=== PATIENT | male | born 1945 | race Caucasian/White ===

== ENCOUNTER 2017-10-10 05:57 | Day surgery (SDC) | payer OTHER ==
[~2017-10-10] VITALS: Ht 182.9 cm; Wt 105.0 kg
[2017-10-10] VITALS (11 sets, daily range): BP systolic 133–180; BP diastolic 62–82; PULSE 62–81; RESP 18–22; TEMP 97.5–98.6; O2SAT 95–97
[~2017-10-10 05:57] MED LIST: ALBU.5I NEB; ASPI-516 CHEW; ATOR40TA16 PO; COQ-100C2; D31000CA3 PO; IPRAAER INH; METO25TA3 PO; RANI150C PO; SERT-132 PO; UMEC1AER INH
[2017-10-10] MEDS ORDERED: POVIDONE IODINE 5% (ANTISEPSIS KIT) 4 APPLICATIONS EACH NARE PRN (06:30)
[2017-10-10] MEDS ORDERED: ceFAZolin 2 GM PREMIX 50 ML IV SCH (06:30)
[2017-10-10] MEDS ORDERED: CHLORHEXIDINE GLUCONATE 2 % 1 PACK (2 CLOTHS) TOPICAL PRN (06:30)
[2017-10-10] MEDS ORDERED: MUPIROCIN 2% OINT 1 APPLIC/GM SYR NASAL SCH (06:30)
[2017-10-10] MEDS ORDERED: SODIUM CHLORID 0.9% 500 ML IV PRN (06:30)
[2017-10-10] MEDS ORDERED: METOPROLOL TARTRATE 25 MG TAB PO PRN (06:30)
[2017-10-10] MEDS ORDERED: POVIDONE IODINE 5% (ANTISEPSIS KIT) 4 APPLICATIONS EACH NARE SCH (06:30)
[2017-10-10] MEDS ORDERED: CHLORHEXIDINE GLUCONATE 2 % 1 PACK (2 CLOTHS) TOPICAL SCH (06:30)
[2017-10-10] MEDS ORDERED: LACTATED RINGER'S 1000 ML IV PRN (06:30)
[2017-10-10] MEDS ORDERED: SITA25 PO (07:00)
[2017-10-10] MEDS ORDERED: VANCOMYCIN 1000 MG/NS 250 ML ON-CALL IV SCH ×2 (07:00)
[2017-10-10] MEDS ORDERED: COQ-50CA2 (07:00)
[2017-10-10] MEDS ORDERED: GLIP10TA6 PO (07:00)
[2017-10-10] MEDS ORDERED: MIDAZOLAM HCL 2 MG/2 ML VIAL ONE (07:14)
[2017-10-10 07:16] LABS: BASOPHIL # 0.1 TH/MM3 (0-0.2); BASOPHIL % 0.6 % (0.0-2.0); EOSINOPHIL # 0.4 TH/MM3 (0-0.4); EOSINOPHIL % 4.9 % (0.0-4.0); HEMATOCRIT 41.1 % (39.0-51.0); LYMPH % 18.9 % (9.0-44.0); LYMPHOCYTE # 1.7 TH/MM3 (1.0-4.8); MEAN CELL VOLUME 86.8 FL (80.0-100.0); MEAN CORPUSCULAR HEMOGLOBIN 29.5 PG (27.0-34.0); MEAN CORPUSCULAR HGB CONC 33.9 % (32.0-36.0); MEAN PLATELET VOLUME 8.6 FL (7.0-11.0); MONO % 7.6 % (0.0-8.0); MONOCYTE # 0.7 TH/MM3 (0-0.9); PLATELET COUNT 195 TH/MM3 (150-450); RED BLOOD COUNT 4.74 MIL/MM3 (4.50-5.90); RED CELL DISTRIBUTION WIDTH 13.3 % (11.6-17.2); WHITE BLOOD COUNT 8.9 TH/MM3 (4.0-11.0)
[2017-10-10] MEDS ORDERED: LIDOCAINE HCL 2% 50 ML VIAL ONE (07:16)
[2017-10-10] MEDS ORDERED: VANCOMYCIN 500 MG VIAL ONE (07:17)
[2017-10-10] MEDS ORDERED: HEPARIN-NS/PF FLUSH BAG 1,000 ML IV FLUSH ONE (07:18)
[2017-10-10 07:34] LABS: BICARBONATE 29.5 MEQ/L (21.0-32.0); CALCIUM 8.7 MG/DL (8.5-10.1); CREATININE 2.04 MG/DL (0.60-1.30)
[2017-10-10] MEDS ORDERED: GENTAMICIN SULFATE 80 MG/2 ML VIAL ONE (08:13)
[2017-10-10] MEDS: ALBUTEROL SULFATE 90 MCG/ACT HFA 18 GM INHALER INH SCH ×3 (09:00→21:00)
[2017-10-10] MEDS ORDERED: SODIUM CHLORIDE 0.9% FLUSH 10 ML FLUSH IV FLUSH PRN (09:00)
[2017-10-10] MEDS: TIOTROPIUM BROMIDE 18 MCG INH INH SCH (09:00)
[2017-10-10] MEDS ORDERED: RESP: ALBUTEROL CONC 2.5 MG/0.5 ML NEB NEB PRN (09:00)
[2017-10-10] MEDS: FAMOTIDINE 20 MG TAB PO SCH ×2 (09:00→21:22)
[2017-10-10] MEDS: SERTRALINE HCL 50 MG TAB PO SCH (09:00)
[2017-10-10] MEDS ORDERED: ONDANSETRON HCL 4 MG/2 ML VIAL IV PUSH PRN (09:00)
[2017-10-10] MEDS: UMECLIDINIUM 62.5 MCG/VILANTEROL 25 MCG INHALER INH SCH (09:00)
[2017-10-10] MEDS: ASPIRIN 81 MG CHEW TAB CHEW SCH (09:00)
[2017-10-10] MEDS: SODIUM CHLORIDE 0.9% FLUSH 10 ML FLUSH IV FLUSH SCH ×2 (09:00→21:22)
[2017-10-10] MEDS ORDERED: ACETAMINOPHEN/CODEINE 300 MG/30 MG TAB PO PRN (09:00)
[2017-10-10] MEDS: METOPROLOL TARTRATE 25 MG TAB PO SCH ×2 (09:00→21:22)
--- NOTE | 2017-10-10 09:15 | CATHPROC ---
[facility] HIS Report Study Information Study Number Admission Scheduled Start Study Start [id number] Oct 10 2017 5:57AM 10/10/2017 Oct 10 2017 6:49AM [place] Service Cardiac Pacer/ICD Admit Source Facility Department Other [facility] - Special Effects Person Physician and Clinical Staff Initial Theresa Greer Proofer Apprentice Arlyn Cristina,NIELS Proofer Apprentice Gerry Watkins,RT(R) Other Anesthesia, BARGE HAND Recorder Boo BOWSER, Klaudia Ospina,RT(R) TECH2 Procedures Performed Procedure Location (Site) Vessel Name Lead Insertion Venogram Coronary Sinus Other Wire insertion Subclav. Vein (Lft Subclavian Vein Equipment Time Double Needle Stitcher Description Size Mfg Part Number Used/Scraped [id number] 08:09 [employer] WIRE, ASAHI PROWATER 180CM 180CM Used *[id number] 02574-51 08:23 [employer] W[employer], ASAHI PROWATER 180CM 180CM Used *[id number] DEFIBRILLATOR, INTICA 7 HF-T 10:29 BIOTRONIK VDE-DDDRV [id number] Used QP 08:00 BIOTRONIK LEAD, SOLIA 60 53 PRO MRI * [id number] Used DERMABOND, ADHESIVE SKIN [facility]12 07:41 CORDIS/PACER * Used GLUE MINI *[id number] CORMATRIX 08:24 ICD, ECM LARGE [id number] Used CARDIOVASCULAR WIRE, HYDROSTEER 150CM [id number] 07:56 DAIG/[employer] 150CM Used ANGLED GLIDE *[id number] WIRE, HYDROSTEER 150CM [id number] 07:54 DAIG/[employer] 150CM Used STRAIGHT GLIDE *[id number] TP-1103 07:41 MEDLINE INDUSTRIES SUTURE, STRIP PLUS 1/2" * Used *[id number] 07:41 MEDLINE PACER BHATIA, LIMB * 2530 *[id number] Used [id number] 07:41 MEDLINE PACER PACK, PACER CUSTOM * Used *[id number] 07:43 Scali PACER SAFE SHEATH, FR7, 13CM FR 7 [id number] Used 07:44 [employer] MEDICAL PACER SAFE SHEATH, FR9, 13CM FR 9 CLS-1009 Used 08:13 NYCOMED OMNIPAQUE, 350 MG, 50ML 50ML [id number] Used SUTURE, 0 ETHIBOND [CT1] (CX21D), 8pk SUTURE, 2-0 VICRYL [CT1] (GOS942G) SUTURE, 2-0 VICRYL [CT1] ([id number]) [id number] 07:41 [employer] BLANKET,WARM AIR CCL * Used *[id number] 08:11 [employer] LIVEWIRE, DECA, MED SWEEP FR 6 [id number] Used 392742 07:55 [employer] SHEATH, EPS, FR5 FAST CATH FR 5 Used *[id number] [facility] PAD, ELECTROSURGICAL 07:41 * [id number] *[id number] Used SURGICAL GROUNDING ORANGE LEAD, ATTAIN PERFORMA 08:16 VITATRON MEDTRONIC 88CM 4398-88CM Used STRAIGHT, 88CM [id number] 07:41 [employer] MG. / * Used *26110 Equipment Model, Serial, Lot Number and Expiration Data Description Model Number Serial Number Lot Number Expiration Date DEFIBRILLATOR, INTICA 7 HF-T QP [id number] 09-05-2018 LEAD, ATTAIN PERFORMA 4398-88 [id number] 08-03-2019 STRAIGHT, 88CM LEAD, SOLIA 60 53 PRO MRI [id number] 09-05-2019 Medication Medication Total Dose (Bolus/Oral) Medication Total Dosage/Unit 2% XYLOCAINE 30 mL Medications (Bolus/Oral) Medication Time Given Dosage/Unit Administered By Reason 2% XYLOCAINE 10/10/2017 7:47:56 AM 30 mL Theresa Keys 30 mL 2% XYLOCAINE given in lab by Theresa Keys in Left shoulder via Subcutaneous. Ordered by Theresa Keys. Medication (Drip) Medication Time Given Dosage/Unit Concentration/Unit Diluent (ml) Solution ANCEF 10/10/2017 7:25:37 AM 2 g 2 g ANCEF given in lab by Anesthesia, BARGE HAND via Peripheral IV. Ordered by Theresa Keys. VANCOMYCIN DRIP 10/10/2017 7:25:00 AM 1 g 1 g VANCOMYCIN DRIP given in lab by Anesthesia, BARGE HAND via Peripheral IV. Ordered by Theresa Keys. Initial Case Assessment Cardiovascular HR NIBP 62 115/60 Edema Present Skin color Skin None Normal Warm Dry Neurological State Oriented to time-place- Alert Moves all extremities person Respiration - General Respiration Rate SpO2 (%) (B/min) 16 98 Chronological Log Time Study Chronological Log 7:05:52 Patient arrived via Bed. 7:06:00 Patient Name, D.O.B, / Armband Verified By R.N. 7:06:17 Consent signed by the physician and the patient and verified by the Special Effects Person staff. 7:07:22 Pre-op and post- op instructions given; patient acknowledges understanding of instructions. 7:07:56 Anesthesia at bedside. Assumes care of patient. Assessment: Initial Case, HR=62 BPM, UYPC=206/60 mmhg, Edema=None, Color=Normal, Skin = Warm, Dry 7:10:53 Neurological: State=Alert, Ox3, QUAN Respiration: Resp=16 B/min, SpO2=98 % 7:12:40 Patient has been NPO for More than 6Hrs. 7:13:27 Skin Breakdown- none reported 7:15:17 Patient Warmer Placed on the Table. 7:15:23 Disposable Defibrillator Pads Placed On Patient. 7:15:26 Marci Prominences Protected 7:15:32 A # 20 IV was noted in the Hand (left). Grade = 0 7:15:46 A # 20 IV was noted in the Hand (right). Grade = 0 7:16:19 History and physical on the chart or being dictated. 7:16:31 Table restraints applied according to hospital policy 7:18:39 Left Upper Chest Prepped Times Two. 7:20:27 Bovie ground pad applied to: 7:20:32 Reference ECG taken 7:25:00 1 g VANCOMYCIN DRIP given in lab by Anesthesia, BARGE HAND via Peripheral IV. Ordered by Ilia Keys. 7:25:37 2 g ANCEF given in lab by Anesthesia, BARGE HAND via Peripheral IV. Ordered by Theresa Keys. 7:29:16 paged First Sponge And Instrument Count Done by Ramon Haddad RN. 7:34:19 Hypo's:3 hypo's, Sponges:20 sponges, Bovie/scratch: 1bovie/scratch 1 Sutures:10, Blades: 1, Instruments: 26 7:35:23 MD arrived. Time Out. Correct patient, procedure, procedure equipment, site and side verified with physician present. Time 7:47:27 concurred by MD, individual staff and BARGE HAND. 7:47:31 Case Start 7:47:56 30 mL 2% XYLOCAINE given in lab by Theresa Keys in Left shoulder via Subcutaneous. Ordered by Theresa Keys. 7:48:37 Surgical Incision Made. 7:48:48 A pocket opened the Lt. upper chest. 7:50:46 A device was explanted. 7:50:57 A pocket was revised at the Lt. upper chest. 7:51:59 Vascular access was obtained in the Subclav. Vein (Lft. 7:54:40 A WIRE, HYDROSTEER 150CM STRAIGHT GLIDE 150CM was inserted via Subclav. Vein (Lft. 7:57:19 5 Fr dilator inserted in Left subclavian vein 7:58:16 A SAFE SHEATH, FR7, 13CM FR 7 was advanced into the Subclav. Vein (Lft using the Modified Se ldinger technique. 7:58:38 Glidewire removed 7:59:17 A LEAD, SOLIA 60 53 PRO MRI * was inserted and positioned in the RA. 8:00:19 Lead placement verified under fluoroscopy 8:00:30 The Atrial lead impedance and threshold is being tested. 8:00:50 Sheath removed 8:01:50 The Atrial lead was sutured to the fascia. 8:02:38 Vascular access was obtained in the Subclav. Vein (Lft. 8:03:43 A SAFE SHEATH, FR9, 13CM FR 9 was advanced into the Subclav. Vein (Lft using the Modified Se carveringer technique. A meets cs catheter was advanced over a wire. contrast was used for cs injection. 8:04:43 A LIVEWIRE, DECA, MED SWEEP FR 6 was advanced vis Subclav. Vein (Lft and placed in the CS. Place ment was 8:06:50 visually confirmed under fluoroscopy. 8:07:34 Livewire removed 8:08:48 The Coronary Sinus was manually injected with 10 cc's of contrast. OMNIPAQUE, 350 MG, 50ML 5 0ML used. 8:12:23 Prowater Wire inserted 8:14:54 A LEAD, ATTAIN PERFORMA STRAIGHT, 88CM 88CM was inserted and positioned in the CS/LV. 8:19:31 CS lead and wire removed A LIVEWIRE, DECA, MED SWEEP FR 6 was advanced vis Subclav. Vein (Lft and placed in the CS over a prowater wire. 8:20:58 Placement was visually confirmed under fluoroscopy. 8:21:01 Livewire removed 8:21:50 The Coronary Sinus was manually injected with 10 cc's of contrast. OMNIPAQUE, 350 MG, 50ML 50ML used. 8:24:25 A LEAD, ATTAIN PERFORMA STRAIGHT, 88CM 88CM was inserted and positioned in the CS/LV. 8:25:35 Lead placement verified under fluoroscopy 8:27:09 The CS/LV lead impedance and threshold is being tested. 8:28:21 Catheter was removed 8:31:36 The CS/LV lead was sutured to the fascia. 8:35:06 Pocket flushed with antibiotic solution 8:35:39 A implantable was connected and placed in the pocket. Second Sponge And Instrument Count Done by Theresa Keys. 8:47:46 Hypo's:3 hypo's, Sponges:20 sponges, Bovie/scratch:1 bovie/scratch 1 Sutures: 10, Blades: 1 8:53:48 The pocket was closed. 8:53:55 Implant Procedure was performed. 8:54:03 A Bivent ICD Implant . (Dual) 8:54:28 Case End 8:54:49 Steri-strips and a sterile dressing applied to site. The Final Sponge And Instrument Count Done by Theresa Keys. 8:54:53 Hypo's: 3hypo's, Sponges: 20sponges, Bovie/scratch:1 bovie/scratch 1 Sutures: 10, Blades: 1 8:56:59 Defibrillator and ground pads removed. Skin intact. 9:11:12 Patient moved to stretcher 9:13:59 No case complications noted. 9:14:03 Bedside Report will be given. 9:14:06 Implantable Device card placed in patient's chart. End Study - Contrast Media Used In Study Contrast Total Opened (mL) Total Used (mL) Total Wasted (mL) Omnipaque 50 20 30 End Study - Radiation Exposure Fluoro Time (minutes) 13.2 End Study - Patient Disposition Complications Transferred To Interventional Outcome No Special Effects Person Holding No attempt made
--- NOTE | 2017-10-10 10:24 | EKG ---
Date Performed: 10/10/2017 Time Performed: 06:49:14 PTAGE: 72 years EKG: Sinus bradycardia with borderline 1st degree A-V block. Left axis deviation IV conduction d efect Possible anterior infarct - age undetermined Inferior/lateral ST-T changes may be due to myocar dial ischemia Abnormal ECG PREVIOUS TRACING : 08/31/2012 04.48 DOCTOR: Rodrick Degroot Interpretating Date/Time 10/10/2017 10:21:54
--- NOTE | 2017-10-10 11:43 | RADRPT ---
EXAM DATE/TIME: 10/10/2017 11:03 [place] COMPARISON: No previous studies available for comparison. INDICATIONS : Post pacemaker. MEDICAL HISTORY : Hypertension. Cardiovascular disease. SURGICAL HISTORY : None. ENCOUNTER: Initial ACUITY: 1 day PAIN SCORE: 08/15 LOCATION: Left chest FINDINGS: A single portable frontal view of the chest shows a left-sided dual-lead pacing device. Leads termina te in the region of the right atrium and right ventricle. No pneumothorax. Heart is mildly enlarged. No pulmonary vascular engorgement. Lungs are clear. CONCLUSION: No pneumothorax. Cardiomegaly. David Mandujano Jr., MD on October 10, 2017 at 11:41 Board Certified Radiologist. This report was verified electronically.
[2017-10-10] MEDS: ACETAMINOPHEN/CODEINE 300 MG/30 MG TAB PO PRN ×2 (12:57→21:22)
[2017-10-10] MEDS: ceFAZolin 2 GM PREMIX 50 ML IV SCH ×2 (15:30→21:36)
[2017-10-10] MEDS: glipiZIDE 10 MG TAB PO SCH (16:52)
[2017-10-10] MEDS ORDERED: TEMAZEPAM 15 MG CAP PO PRN (21:00)
[2017-10-10] MEDS ORDERED: ATORVASTATIN 40 MG TAB PO SCH (21:00)
[2017-10-11] VITALS (19 sets, daily range): BP systolic 124–154; BP diastolic 58–74; PULSE 58–88; RESP 18; TEMP 97.3–98.1; O2SAT 99–100
[2017-10-11] MEDS: ACETAMINOPHEN/CODEINE 300 MG/30 MG TAB PO PRN ×2 (03:17→14:00)
[2017-10-11] MEDS: glipiZIDE 10 MG TAB PO SCH (06:10)
[2017-10-11] MEDS: ceFAZolin 2 GM PREMIX 50 ML IV SCH (06:10)
[2017-10-11] MEDS: FAMOTIDINE 20 MG TAB PO SCH (08:17)
[2017-10-11] MEDS: SERTRALINE HCL 50 MG TAB PO SCH (08:17)
[2017-10-11] MEDS: METOPROLOL TARTRATE 25 MG TAB PO SCH (08:17)
[2017-10-11] MEDS: ASPIRIN 81 MG CHEW TAB CHEW SCH (08:18)
[2017-10-11] MEDS: SODIUM CHLORIDE 0.9% FLUSH 10 ML FLUSH IV FLUSH SCH (08:18)
[2017-10-11] MEDS: TIOTROPIUM BROMIDE 18 MCG INH INH SCH (09:00)
[2017-10-11] MEDS: UMECLIDINIUM 62.5 MCG/VILANTEROL 25 MCG INHALER INH SCH (09:00)
[2017-10-11] MEDS: ALBUTEROL SULFATE 90 MCG/ACT HFA 18 GM INHALER INH SCH ×2 (09:00→13:00)
[2017-10-11] MEDS ORDERED: CHOLECALCIFEROL (VIT D3) 5000 UNIT CAP PO SCH (09:00)
--- NOTE | 2017-10-11 15:17 | HHI.DS ---
Discharge Summary Admission Date 10/10/17 Discharge Date: Oct 11, 2017 Admitting Diagnosis pacer.AICD generator change (1) Hx of ventricular fibrillation ICD Codes: Z86.79 - Personal history of other diseases of the circulatory system Status: Resolved (2) Hypertension Diagnosis: Principal ICD Codes: I10 - Essential (primary) hypertension (3) Diabetes mellitus Diagnosis: Principal ICD Codes: E11.9 - Type 2 diabetes mellitus without complications (4) S/P cardiac pacemaker procedure Diagnosis: Secondary ICD Codes: Z95.0 - Presence of cardiac pacemaker Procedures s/p DDD BIV /ICD 10/[address] Keys Brief History 72/ male hx of vib arrest / hx of AICD 2008/ now with generator change/ post LV lead unable to capture HX of CAD, CKD, DM ischemic CM, HLP, HTN CBC/BMP: 10/10/17 0635 10/10/17 0635 Significant Findings Laboratory Tests Test 10/10/17 06:35 Eosinophils (%) (Auto) 4.9 % (0.0-4.0) Blood Urea Nitrogen 32 MG/DL (7-18) Creatinine 2.04 MG/DL (0.60-1.30) Random Glucose 198 MG/DL (74-106) Estimat Glomerular Filtration Rate 32 ML/MIN (>89) Imaging Last Impressions Chest X-Ray 10/10/17 0000 Signed Impressions: Service Date/Time: Tuesday, October 10, 2017 11:03 - CONCLUSION: No pneumothorax. Cardiomegaly. David Mandujano Jr., MD PE at Discharge GENERAL: A&O x3 SKIN: Warm and dry. dressing in tact left upper chest wall HEAD: Normocephalic. EYES: No scleral icterus. No injection or drainage. NECK: Supple, trachea midline. No JVD or lymphadenopathy. CARDIOVASCULAR: Regular rate and rhythm without murmurs, gallops, or rubs. RESPIRATORY: Breath sounds equal bilaterally. No accessory muscle use. GASTROINTESTINAL: Abdomen soft, non-tender, nondistended. MUSCULOSKELETAL: No cyanosis, or edema. BACK: Nontender without obvious deformity. No CVA tenderness. Hospital Course s/p biotronik DDD BIV / ICD 10/[address] Keys LV lead noncapture pt will be brought back in as outpt for epicardial lead placement and related procedures Pt Condition on Discharge: Fair Discharge Disposition: Discharge Home Discharge Instructions DIET: Follow Instructions for: Heart Healthy Diet Activities you can perform: See Additionl Instruction Additional Activity Instructio: see Dr. Keys's instructions Continued Medications: Albuterol Neb (Albuterol Neb) 2.5 Mg/0.5 Ml Neb 2.5 MG NEB TID NEB PRN for SHORTNESS OF BREATH, #90 NEBULE 0 Refills Note: The Albuterol Sulfate Inhalation Solution is concentrated and must be diluted. Read complete instructions carefully before using. Aspirin (Aspirin) 81 Mg Chew 162 MG CHEW DAILY, TAB 0 Refills Atorvastatin (Atorvastatin) 40 Mg Tab 40 MG PO HS for Cholesterol Management, #30 TAB 0 Refills Cholecalciferol (Vitamin D-3) 1,000 Unit Cap 5000 UNITS PO EVERY OTHER DAY Coenzyme Q10 (Ubidecarenone) (Coq-10) 50 Mg Cap Glipizide (Glipizide) 10 Mg Tab 10 MG PO BIDAC for Blood Sugar Management, #60 TAB 0 Refills Take 30 minutes before a meal Ipratropium-Albuterol Inh (Combivent Respimat Inh) 20-100 Prison/Act Aero 1 PUFF INH QID for Asthma Management, #1 INHALER 0 Refills Ranitidine (Ranitidine) 150 Mg Cap 150 MG PO BID, #60 CAP 0 Refills Sertraline (Sertraline) 50 Mg Tab 50 MG PO DAILY, #30 TAB 0 Refills Sitagliptin (Januvia) 25 Mg Tab 25 MG PO DAILY for Blood Sugar Management, #30 TAB 0 Refills Umeclidinium-Vilanterol Inh (Anoro Ellipta Inh) 62.5-25 Mcg/Act Aero 1 PUFF INH DAILY for COPD, #1 INHALER 0 Refills Claudia Vaughan Oct 11, 2017 15:17
[2017-10-11] MEDS ORDERED: NORC5TAB PO (15:18)
--- NOTE | 2017-10-11 16:02 | HHI.PR ---
Subjective Remarks Tired Objective Vital Signs Date Time Temp Pulse Resp B/P (MAP) Pulse Ox O2 Delivery O2 Flow Rate FiO2 10/11/17 15:01 98.1 72 18 125/74 (91) 100 10/11/17 14:01 88 10/11/17 13:01 63 10/11/17 12:00 58 10/11/17 11:15 98.1 64 18 154/69 (97) 99 10/11/17 11:00 60 10/11/17 10:00 58 10/11/17 09:00 64 10/11/17 08:01 97.3 63 18 124/58 (80) 100 10/11/17 08:00 62 10/11/17 07:01 60 10/11/17 06:02 59 10/11/17 05:00 67 10/11/17 04:01 60 10/11/17 03:12 97.7 60 18 124/64 (84) 99 10/11/17 03:00 62 10/11/17 02:00 59 10/11/17 01:00 61 10/11/17 00:00 61 10/10/17 23:10 98.6 68 18 133/72 (92) 95 10/10/17 23:00 64 10/10/17 22:00 66 10/10/17 21:00 72 10/10/17 20:00 72 10/10/17 19:55 166/79 (108) 10/10/17 19:50 135/62 (86) 10/10/17 19:45 97.5 72 18 136/71 (92) 97 10/10/17 19:00 72 10/10/17 16:30 98.2 81 22 180/82 (114) 96 I/O 10/10/17 10/10/17 10/10/17 10/11/17 10/11/17 10/11/17 07:00 15:00 23:00 07:00 15:00 23:00 Intake Total 280 ml 240 ml 480 ml Balance 280 ml 240 ml 480 ml Intake Oral 240 ml 240 ml 480 ml IV Total 40 ml # Voids 2 2 2 # Bowel Movements 0 Result Diagram: 10/10/17 0635 10/10/17 0635 Imaging Alert, fully oriented lungs: ventilated heart: S1, S2 regular, no gallop Abdomen: soft, no mass Ext: no edema Clean surgical wound Last Impressions Chest X-Ray 10/10/17 0000 Signed Impressions: Service Date/Time: Tuesday, October 10, 2017 11:03 - CONCLUSION: No pneumothorax. Cardiomegaly. David Mandujano Jr., MD Current Medications Medications (Trade) Dose Ordered Sig/Jhon Route Start Time Stop Time Status Last Admin Lactated Ringer's 1,000 ml @ 30 mls/hr Q24H PRN IV 10/10/17 06:30 10/13/17 06:29 Sodium Chloride 500 ml @ 30 mls/hr [id number] PRN IV 10/10/17 06:30 10/13/17 06:29 (Lopressor) 25 mg ARMORER TECHNICIAN PRN PO 10/10/17 06:30 10/13/17 06:29 (Betadine 5% Antisepsis Kit) 1 applic ARMORER TECHNICIAN PRN EACH NARE 10/10/17 06:30 10/13/17 06:29 (Chlorhexidine 2% Cloth) 3 pack ARMORER TECHNICIAN PRN TOPICAL 10/10/17 06:30 10/13/17 06:29 Cefazolin Sodium/ Dextrose 50 ml @ 100 mls/hr ARMORER TECHNICIAN IV 10/10/17 06:30 10/13/17 06:29 10/10/17 07:25 (Betadine 5% Antisepsis Kit) 2 applic ARMORER TECHNICIAN EACH NARE 10/10/17 06:30 10/13/17 06:29 (Bactroban Nasal 2% Oint) 1 applic ARMORER TECHNICIAN NASAL 10/10/17 06:30 10/13/17 06:29 (Chlorhexidine 2% Cloth) 3 pack ARMORER TECHNICIAN TOPICAL 10/10/17 06:30 10/13/17 06:29 Vancomycin HCl 1000 mg/Sodium Chloride 250 ml @ 250 mls/hr ARMORER TECHNICIAN IV 10/10/17 07:00 10/13/17 06:59 10/10/17 07:25 (Restoril) 15 mg HS PRN PO 10/10/17 21:00 (Zofran Inj) 4 mg Q4H PRN IV PUSH 10/10/17 09:00 (Tylenol-Codeine #3) 1 tab Q4H PRN PO 10/10/17 09:00 (Tylenol-Codeine #3) 2 tab Q4H PRN PO 10/10/17 09:00 10/11/17 14:00 (NS Flush) 2 ml BID IV FLUSH 10/10/17 09:00 10/11/17 08:18 (NS Flush) 2 ml UNSCH PRN IV FLUSH 10/10/17 09:00 (Albuterol Concentrated Neb) 2.5 mg TID NEB PRN NEB 10/10/17 09:00 (Aspirin Chew) 162 mg DAILY CHEW 10/10/17 09:00 10/11/17 08:18 (Lipitor) 40 mg HS PO 10/10/17 21:00 10/10/17 21:22 (Glucotrol) 10 mg BIDAC PO 10/10/17 16:00 10/11/17 06:10 (Lopressor) 25 mg BID PO 10/10/17 09:00 10/11/17 08:17 (Zoloft) 50 mg DAILY PO 10/10/17 09:00 10/11/17 08:17 (Januvia) 25 mg DAILY PO 10/10/17 09:00 10/11/17 08:18 (Vitamin D3) 5,000 units EVERY OTHER DAY PO 10/11/17 09:00 10/11/17 08:17 (Ventolin Hfa Inh) 2 puff QID INH 10/10/17 09:00 (Pepcid) 20 mg BID PO 10/10/17 09:00 10/11/17 08:17 (Spiriva Inh) 18 mcg DAILY INH 10/10/17 09:00 Procedures s/p DDD BIV /ICD 10/[address] Keys Assessment and Plan Problem List: (1) Biventricular automatic implantable cardioverter defibrillator in situ ICD Codes: Z95.810 - Presence of automatic (implantable) cardiac defibrillator Plan: SP ICD upgraded Very large CS with no significant branches Lateral branch was cannulated. Patient has diaphragmatic stimulation. Due to the anatomy, I have referred the patient to dr Cordero for epicardial lead placement Case discussed with patient (2) CHF (congestive heart failure) ICD Codes: I50.9 - Heart failure, unspecified Plan: On optimal medical management Theresa Keys MD Oct 11, 2017 16:02
--- NOTE | 2017-10-11 16:18 | MB ---
cc: Sekou Gross MD DATE OF CONSULT: 10/11/2017 DATE OF : 1945 PHYSICIANS: Dr. Ramsey. Dr. Keys. Dr. Wagner. HISTORY OF PRESENT ILLNESS: The patient reported dyspnea and fatigue, has history of AICD in situ Biotronik, underwent generator change on the . After interrogation today, the left ventricular lead was unable to capture in any of the 12 quadripolar configurations. Initial changes were VVI at 45. We were consulted by Dr. Keys to evaluate for epicardial lead placement and related procedures. PAST MEDICAL HISTORY: 1. Hypertension. 2. Diabetes mellitus type 2. 3. Obesity. 4. Hyperlipidemia. 5. Coronary artery disease. 6. Cardiomyopathy. 7. Chronic kidney disease Stage III. 8. Prior NM. 9. Peripheral arterial disease. PAST SURGICAL HISTORY: 1. Coronary stenting in 2008. 2. AICD. Defibrillator placed in 2012 originally for V-fib arrest. 3. Acute NM back in 2008. Most recent echocardiogram showed moderate to severely decreased LV function, trace mitral and tricuspid regurgitation. EF at that time was 35%. ALLERGIES: ZUHAIR INHIBITORS. ENTRESTO. LOSARTAN. HOME MEDICATIONS: 1. Anoro Ellipta. 2. Aspirin. 3. Atorvastatin. 4. Combivent. 5. Glipizide. 6. Januvia. 7. Metoprolol. 8. Oxygen. 9. Ranitidine. 10. Sertraline. 11. Vitamin D. FAMILY HISTORY: Positive for coronary artery disease, prior tobacco abuse - quit in 2011. REVIEW OF SYSTEMS: GENERAL: No night sweats, fever, heat or old intolerance. SKIN: No rash, itching or hives. HEENT: No blurred vision or hearing loss. RESPIRATORY: No cough. Positive for shortness of breath. CARDIOVASCULAR: No chest pain. GASTROINTESTINAL: No diarrhea, no vomiting. GENITOURINARY: No burning, frequency or urgency. DOCKING PILOT: No history of TIA, CVA or seizure disorder. ENDOCRINOLOGY: Positive for diabetes. PHYSICAL EXAMINATION: VITAL SIGNS: Blood pressure 150/70, heart rate of 58, temperature 98.1. GENERAL: The patient is awake, alert, in no acute distress. HEAD: Normocephalic, atraumatic. EYES: Pupils are equal and reactive. MOUTH: Oral mucosa pink, moist. NECK: Supple. No JVD. CARDIOVASCULAR: Heart sounds S1 and S2. Regular rate and rhythm. No audible rubs or gallops. LUNGS: Clear to auscultation. No wheezing, rales or rhonchi. ABDOMEN: Soft, nontender. No mass or organomegaly. EXTREMITIES: Trace edema. Good distal pulses. LABORATORY DATA: Hemoglobin 14, hematocrit 41, white cell count of 8.9, platelet count of 195. Sodium 138, potassium 4.2, creatinine 2.04, glucose 198. INR 1.0. CHEST X-RAY No pneumothorax or cardiomegaly. IMPRESSION: This is a 72-year-old male with history of prior ventricular fibrillation arrest status post automated implantable cardioverter defibrillator Biotronik initially placed in 2008. Generator change on 10/10/2017 with post-left ventricular lead dysfunction, unable to capture in any of the 12 quadripolar configurations. The sales representative education courses placed the device at a VVI mode at 45 for backup. We were asked to evaluate for epicardial lead placement. PLAN: At this time we will be discharging the patient home, bringing him back in as an elective procedure on 10/23/2017. Dictated by MAURICE Cedeño MD FADUMO Izaguirre/BALTA , 02:44 PM , 03:39 PM
--- NOTE | 2017-10-11 18:24 | EKG ---
Date Performed: 10/11/2017 Time Performed: 05:27:52 PTAGE: 72 years EKG: Sinus rhythm T wave abnormalities, consider inferior and lateral ischemia Nonspecific intraventricular conduction delay Left axis deviation Poor R wave progression Abnormal ECG PREVIOUS TRACING : 10/10/2017 06.49 Compared to previous tracing, lateral T wave changes have i mproved. DOCTOR: Francisco Martins Interpretating Date/Time 10/11/2017 18:22:35
--- NOTE | 2017-10-31 15:10 | MP ---
cc: Theresa Keys MD DATE OF OPERATION: 10/10/2017 PROCEDURE PERFORMED: Defibrillator removal, biventricular pacer defibrillator insertion. INDICATIONS FOR PROCEDURE: Mr. Wiggins is a 72-year-old gentleman with history of congestive heart failure, cardiomyopathy, previous defibrillator implanted in 2012, admit for upgrade of defibrillator to a biventricular pacer defibrillator. The risks, the nature and the benefits of the procedure are clearly stated to him, which include pneumothorax, cardiac perforation, stroke and even . The patient understood and agreed to proceed. DETAILS OF PROCEDURE: After written informed consent was obtained, the patient was brought to the EP lab, where he was prepped and draped in the usual sterile fashion. Conscious sedation was initiated and maintained throughout the procedure by the anesthesiologist. Once sedation verified, the left infraclavicular area was anesthetized with 2% Xylocaine. Using #11 blade scalpel, a 3 cm incision was made over the existing generator. This incision was taken down to the fascial layers and Bovie cautery and blunt dissection. Once exposed, the generator was removed from the pocket. Scar tissue was removed on the lead. Pocket was expanded, pocket revision was performed. Then, using modified Seldinger technique, the left subclavian vein was cannulated on two occasions, two guidewires was advanced. A 2-0 Vicryl suture placed around the wires to prevent back-bleeding. At this point, over the lateral wire, a 7-Singaporean dilator and introducer was advanced. The dilator and wire were removed, an active fixation right ventricular pacing and sensing lead was advanced. After adequate pacing and sensing threshold obtained, the lead was secured to pocket with #2 Ethibond suture. Then, over the remaining wire, a 9-Singaporean dilator and introducer was advanced. Dilator and wire were removed. A CS cannulation sheath was advanced. Through the shealth a quadripolar steerable catheter was advanced. After multiple manipulations, coronary sinus was cannulated. CS venography showed a big CS with a small lateral branch. After multiple attempts, the lateral branch was cannulated and the lead was advanced over the wire. After adequate pacing and sensing thresholds obtained, the peel-away introducer was removed and the cutter introducer was removed and the lead was secured in the pocket with #2 Ethibond suture. At that point, the pocket was copiously irrigated using antibiotic solution. The defibrillator was removed from the pocket and the leads were connected to the new biventricular pacer defibrillator and placed into the pocket. I did proceed with wound closure. The deep fascial layer was approximated with number #2-0 Vicryl suture in a continuous fashion. The subcutaneous layer was approximated using interrupted 2-0 Vicryl suture in a continuous fashion. Supraventricular layer was reapproximated with 2-0 Vicryl suture in a continuous fashion. Dermabond adhesive was applied to the wound followed by a sterile pressure dressing. There was no complication. The patient tolerated the procedure well. ESTIMATED BLOOD LOSS: Minimal. 1. Explanted hardware: The exlanted defibrillator generator is a [employer]ovascularronik, serial #[id number]. 2. Implanted harware: The defibrillator generator is a Biotronik model #688427, serial #[id number]. The right atrial pacing system is Biotronik model #631160, serial #[id number]. The left ventricular pacing sensing lead is a Medtronic model #4398-88, serial #[id number]. 3. Thresholds: The right atrial pacing threshold bipolar mode was 1.8 volts at 0.5 milliseconds. Lead impedance 502 ohms, P-wave at 4.1 millivolt. The right ventricular pacing threshold in bipolar mode was 0.6 volts at 0.4 milliseconds. Lead impedance 505 ohms, R-wave at 22.3 millivolts. Left ventricular pacing threshold in bipolar mode was 0.9 volt at 1 millisecond, lead impedance 620 ohms. 4. Settings: The device set at DDD60, upper rate limit 120 beats per minute. LV first by 40 milliseconds. Defibrillator portion for two zones. One was ventricular tachycardia between 170-250 beats per minute. Initial therapy consist of one burst of ATP, one RAMP, 81%, 10 pause, followed by 20, then 30, and a second shock at 40 joule defibrillator shock. The second zone is for ventricular fibrillation above 250 beats per minute. First therapy at 30 and a second shock at 40 joule defibrillatory shock. CONCLUSION Successful defibrillator removal, biventricular pacer defibrillator replacement. RECOMMENDATIONS: The patient is going to be transferred to the telemetry unit. He will be observed. When stable, can be discharged home. MD SUSU Peters , 08:05 PM , 08:44 PM
== END 2017-10-11 15:40 | disposition home or self-care (01) ==
LOC: HDOC 05:57 → HDIC 05:57 → HCPC 16:04 → HDOC 10-11 15:40
PROVIDERS: ATTEND Thoracic Surgery (Cardiothoracic Vascular Surgery)
DX: Z45.02 Encounter for adjustment and management of automatic implantable cardiac defibrillator (principal); T82.190A Other mechanical complication of cardiac electrode, initial encounter; I13.0 Hypertensive heart and chronic kidney disease with heart failure and stage 1 through stage 4 chronic kidney disease, or unspecified chronic kidney disease; I50.9 Heart failure, unspecified; E11.22 Type 2 diabetes mellitus with diabetic chronic kidney disease; N18.3 Chronic kidney disease, stage 3 (moderate); I49.01 Ventricular fibrillation; I25.5 Ischemic cardiomyopathy; I25.10 Atherosclerotic heart disease of native coronary artery without angina pectoris; I25.2 Old myocardial infarction; I73.9 Peripheral vascular disease, unspecified; E78.5 Hyperlipidemia, unspecified; E66.9 Obesity, unspecified; Z01.810 Encounter for preprocedural cardiovascular examination; Z01.818 Encounter for other preprocedural examination
CPT/HCPCS: 00534; 33224; 33249; 71045; 80048; 85025; 85610; 86850; 86900; 86901; 93005; C1730; C1769; C1882; C1898; C1900; J0690; J1580; J1644; J2250; J3010; J3370; J7050

== ENCOUNTER 2017-11-16 07:30 | Inpatient (IN) | payer OTHER, MEDICARE ==
[2017-11-16] VITALS (7 sets, daily range): BP systolic 120–146; BP diastolic 52–66; PULSE 72–96; RESP 16–18; TEMP 97.7–98; O2SAT 95–99
[~2017-11-16] VITALS: Ht 182.9 cm; Wt 105.5 kg
[~2017-11-16 07:30] MED LIST changes: -COQ-100C2; +COQ-50CA2; +GLIP10TA6 PO; +NORC5TAB PO; +SITA25 PO
[2017-11-16] MEDS ORDERED: NITROGLYCERIN IRRIGATION SCH (09:00)
[2017-11-16] MEDS ORDERED: CEFAZOLIN 500 MG in NS IRR BTL 500 ML IRRIGATION SCH (09:00)
[2017-11-16] MEDS ORDERED: LACTATED RINGER'S 1000 ML IV PRN (09:00)
[2017-11-16] MEDS ORDERED: POVIDONE IODINE 5% (ANTISEPSIS KIT) 4 APPLICATIONS EACH NARE PRN (09:00)
[2017-11-16] MEDS ORDERED: INSULIN REGULAR 100 UNITS in NS 100 ML IV PRN (09:00)
[2017-11-16] MEDS ORDERED: VERAPAMIL IRRIGATION SCH (09:00)
[2017-11-16] MEDS ORDERED: ceFAZolin 2 GM PREMIX 50 ML IV SCH (09:00)
[2017-11-16] MEDS ORDERED: DEXTROSE 50% IN WATER 50 ML VIAL(D50) IV PUSH PRN (09:00)
[2017-11-16] MEDS ORDERED: CHLORHEXIDINE GLUCONATE 2 % 1 PACK (2 CLOTHS) TOPICAL PRN (09:00)
[2017-11-16] MEDS ORDERED: SODIUM CHLORIDE 0.9% IRRIGATION SCH (09:00)
[2017-11-16] MEDS ORDERED: SODIUM CHLORID 0.9% 500 ML IV PRN (09:00)
[2017-11-16] MEDS ORDERED: CHLORHEXIDINE GLUCONATE 4% SOLN 120 ML BTL TOPICAL SCH (09:00)
[2017-11-16] MEDS ORDERED: METOPROLOL TARTRATE 25 MG TAB PO PRN (09:00)
[2017-11-16] MEDS ORDERED: ATOR20TA15 PO (09:17)
[2017-11-16] MEDS ORDERED: BUPIVACAINE LIPOSO PF 1.3% INJ 20 ML, DEXAMETHASONE INJ 4 MG, MORPHINE INJ 8 MG in SODI... IRRIGATION SCH (09:45)
[2017-11-16] MEDS ORDERED: ceFAZolin 2 GM PREMIX 50 ML ONE (11:08)
[2017-11-16] MEDS ORDERED: methylPREDNISolone SOD SUCC 125 MG/2 ML VIAL ONE (13:27)
[2017-11-16] MEDS ORDERED: Post-op Orders (for Pharmacy) OTHER ONE (14:45)
[2017-11-16] MEDS ORDERED: SODIUM CHLORIDE 0.9% FLUSH 10 ML FLUSH IV FLUSH PRN (14:45)
[2017-11-16] MEDS ORDERED: ONDANSETRON HCL 4 MG/2 ML VIAL IV PUSH PRN (14:45)
[2017-11-16] MEDS ORDERED: ACETAMINOPHEN 325 MG TAB PO PRN (14:45)
[2017-11-16] MEDS ORDERED: MAGNESIUM HYDROXIDE SUSP 30 ML CUP PO PRN (14:45)
[2017-11-16] MEDS ORDERED: RESP: ALBUTEROL 2.5 MG/3 ML NEB (PRN) NEB (14:45)
[2017-11-16] MEDS ORDERED: DO NOT ADM ANY ANTICOAGULANT DRUGS PRN (15:00)
[2017-11-16] MEDS ORDERED: RESP: ALBUTEROL 2.5 MG/IPRATROPIUM 0.5 MG NEB (SCH) ONE (15:19)
[2017-11-16] MEDS: ACETAMINOPHEN 1000 MG/100 ML 100 ML IV SCH (15:20)
[2017-11-16] MEDS ORDERED: MIDAZOLAM HCL 2 MG/2 ML VIAL ONE (15:33)
--- NOTE | 2017-11-16 15:41 | RADRPT ---
EXAM DATE/TIME: 11/16/2017 16:18 [facility] COMPARISON: CHEST SINGLE AP, October 10, 2017, 11:03. INDICATIONS : Post thoracotomy Evaluate for pneumothorax. MEDICAL HISTORY : Hypertension. Cardiovascular disease. SURGICAL HISTORY : Pacemaker. ENCOUNTER: Subsequent ACUITY: 3 days PAIN SCORE: 6/10 LOCATION: Bilateral chest FINDINGS: The heart is stable. Left subclavian dual lead pacemaker has its tips in right atrium right ventricle . No pneumothorax is noted. The pulmonary vascular pattern is normal. The lungs are clear. Possible c hest drain overlies the left upper hemithorax medially. CONCLUSION: No acute infiltrate or pulmonary vascular congestion. No evidence of pneumothorax. Bryant Gordon MD on November 16, 2017 at 15:37 Board Certified Radiologist. This report was verified electronically.
[2017-11-16] MEDS: RESP: ALBUTEROL 2.5 MG/3 ML NEB (SCH) NEB ×2 (16:00→19:15)
[2017-11-16] MEDS ORDERED: KETOROLAC TROMETHAMINE 30 MG/ML (IVP) VIAL IV PUSH SCH (16:00)
[2017-11-16] MEDS ORDERED: SUGAMMADEX SODIUM 200 MG/2 ML VIAL IV PUSH ONE (16:53)
--- NOTE | 2017-11-16 16:59 | PD.OP ---
cc: Sekou Gross MD; Theresa Keys MD Operative Report Date of Surgery: Nov 16, 2017 Preoperative Diagnosis: Postoperative Diagnosis: Procedure: 1. Left Anterior Mini-Thoracotomy 2. Epicardial Left Ventricular Lead Placement 3. Repositioning of Right Atrial Lead 4. Removal of Coronary Sinus Lead 5. Removal and Replacement of BiVentricular Pacemaker ICD Generator Device 6. Intercostal nerve Block. Surgeon: Sekou Gross Operations Officer(s): Cathy Cristobal Operation and Findings: PREOPERATIVE DIAGNOSIS 1. Cardiomyopathy 2. CHF 3. Severe Left Ventricular Dysfunction POSTOPERATIVE DIAGNOSIS same PROCEDURES 1. Left Anterior Mini-Thoracotomy 2. Epicardial Left Ventricular Lead Placement 3. Repositioning of Right Atrial Lead 4. Removal of Coronary Sinus Lead 5. Removal and Replacement of BiVentricular Pacemaker ICD Generator Device 6. Intercostal nerve Block. SURGEON Sekou Gross MD FLOOR ATTENDANT Javier Cristobal ANESTHESIA General Double-lumen endotracheal. DEPUTY GRAND JURY CORWIN Onofre MD OPERATIVE TIME Please see record. COMPLICATIONS None. INDICATION FOR PROCEDURE The patient is a 72 yo with cardiomyopathy and recurrent CHF who is being brought to the operating room for epicardial left ventricular lead placement following unsatisfactory percutaneous CS lead placement and malpositioned RA lead. DESCRIPTION OF PROCEDURE The patient was brought to the operating suite and placed in supine position with the left chest slightly elevated. Following satisfactory induction of general endotracheal anesthesia, the patient was prepped and draped in the usual sterile fashion. An anterior mini-thoracotomy (5 cm) was then performed in the 4th ICS and carried down to the pleura. With gentle sharp and blunt dissection, the left pleural space was entered. The pericardium was identified. There was a thick layer of fat overlying the pericardium which was dissected free. A pericardiotomy was performed anterior to the phrenic nerve, with care being taken to avoid direct or traction injury to the neurovascular bundle, and viable left ventricular muscle identified. A Biotronik LV screw in lead was placed on the ventricular surface. Serial # [id number], REF # [id number]. Parameters measured were excellent with threshold of 0.9 V at 0.4 ms and impedance of 597 ohms. The previously closed infraclavicular incision was opened and the pocket irrigated with antibiotic solution. The malfunctioning coronary sinus lead was easily extracted with gentle traction and removed. The RA and RV leads were disconnected from the generator device it was replaced with a new device. The right atrial lead was noted to be dislodged. Using fluoroscopic guidance, the RA lead was repositioned into the atrial appendage and actively fixed with excellent parameters. The epicardial lead was tunneled and connected to the generator device as were the RA, RV and ICD leads. A #24-Micronesian Daniel drain was placed in the pleural space. Intercostal nerve block was performed at the level of the incision and 2 rib spaces above and below using Exparel solution. The intercostal space was reapproximated with a single #2 Vicryl stitch. Wounds were closed with 2-0, 3-0, and 4-0 Monocryl. The patient tolerated the procedure well and postoperatively went to recovery in stable condition. Sekou Gross MD Nov 16, 2017 16:59
[2017-11-16] MEDS: ACETAMINOPHEN/HYDROcodone 325 MG/5 MG TAB PO PRN ×2 (18:16→20:40)
[2017-11-16] MEDS: PANTOPRAZOLE SOD 40 MG DELAYED RELEASE TAB PO SCH (20:39)
[2017-11-16] MEDS: DOCUSATE CALCIUM 240 MG CAP PO SCH (20:40)
[2017-11-17] VITALS (19 sets, daily range): BP systolic 112–139; BP diastolic 54–65; PULSE 68–95; RESP 16–20; TEMP 96.8–98.4; O2SAT 92–99
[2017-11-17] MEDS: ACETAMINOPHEN 1000 MG/100 ML 100 ML IV SCH ×2 (03:00→08:57)
[2017-11-17] MEDS: RESP: ALBUTEROL 2.5 MG/3 ML NEB (SCH) NEB ×4 (03:11→20:48)
[2017-11-17] MEDS: SODIUM CHLORIDE 0.9% FLUSH 10 ML FLUSH IV FLUSH SCH ×3 (03:19→21:24)
[2017-11-17] MEDS: ACETAMINOPHEN/HYDROcodone 325 MG/5 MG TAB PO PRN ×4 (03:22→21:23)
[2017-11-17 04:33] LABS: AUTOMATED NEUTROPHIL # 10.7 TH/MM3 (1.8-7.7); BASOPHIL # 0.1 TH/MM3 (0-0.2); BASOPHIL % 0.6 % (0.0-2.0); HEMATOCRIT 38.5 % (39.0-51.0); HEMOGLOBIN 12.5 GM/DL (13.0-17.0); LYMPH % 4.9 % (9.0-44.0); LYMPHOCYTE # 0.6 TH/MM3 (1.0-4.8); MEAN CORPUSCULAR HEMOGLOBIN 28.2 PG (27.0-34.0); MEAN CORPUSCULAR HGB CONC 32.5 % (32.0-36.0); MONO % 4.6 % (0.0-8.0); MONOCYTE # 0.5 TH/MM3 (0-0.9); NEUT % 89.9 % (16.0-70.0); PLATELET COUNT 198 TH/MM3 (150-450); RED BLOOD COUNT 4.42 MIL/MM3 (4.50-5.90); RED CELL DISTRIBUTION WIDTH 13.7 % (11.6-17.2); WHITE BLOOD COUNT 11.9 TH/MM3 (4.0-11.0)
[2017-11-17 04:55] LABS: BICARBONATE 26.2 MEQ/L (21.0-32.0); CALCIUM 7.9 MG/DL (8.5-10.1); CREATININE 2.12 MG/DL (0.60-1.30)
--- NOTE | 2017-11-17 05:53 | RADRPT ---
EXAM DATE/TIME: 11/17/2017 04:15 [facility] COMPARISON: CHEST SINGLE AP, October 10, 2017, 11:03. CHEST SINGLE AP, November 16, 2017, 16:18. INDICATIONS : Shortness of breath, possible pulmonary disease. MEDICAL HISTORY : Hypertension. Cardiovascular disease. SURGICAL HISTORY : Pacemaker. Thoracotomy ENCOUNTER: Subsequent ACUITY: 4 - 6 days PAIN SCORE: 3/10 LOCATION: Bilateral chest FINDINGS: The cardiac silhouette is enlarged in transverse diameter. The lungs are free of acute parenchymal op acity. No effusions are identified. A biventricular defibrillator is in place via a left sided approa ch. CONCLUSION: 1. Cardiomegaly. No acute pulmonary disease. Yoshi Zaman MD on November 17, 2017 at 5:50 Board Certified Radiologist. This report was verified electronically.
--- NOTE | 2017-11-17 10:28 | PD.CAR.PN ---
CVT Progress Note Subjective/Hospital Course: [address] Keys with cardiomyopathy who is s/p previous biventricular ICD placement. He now presents with non-function of his CS lead and malposition of his RA lead. 11/16 PROCEDURES 1. Left Anterior Mini-Thoracotomy 2. Epicardial Left Ventricular Lead Placement 3. Repositioning of Right Atrial Lead 4. Removal of Coronary Sinus Lead 5. Removal and Replacement of BiVentricular Pacemaker ICD Generator Device 6. Intercostal nerve Block. 11/17 Doing well D/C CT Discharge home Objective: Vital Signs Date Time Temp Pulse Resp B/P (MAP) Pulse Ox O2 Delivery O2 Flow Rate FiO2 11/17/17 07:00 88 11/17/17 07:00 96.8 72 16 121/58 (79) 95 11/17/17 06:00 68 11/17/17 05:00 68 11/17/17 04:00 70 11/17/17 03:43 97.9 73 16 139/54 (82) 92 11/17/17 03:00 68 11/17/17 02:00 74 11/17/17 01:00 74 11/17/17 00:00 70 11/17/17 00:00 98.0 74 16 112/57 (75) 98 11/16/17 23:00 72 11/16/17 22:00 78 11/16/17 21:00 72 11/16/17 20:00 74 11/16/17 20:00 98.0 75 16 120/52 (74) 96 11/16/17 19:15 99 Nasal Cannula 3.00 11/16/17 19:00 74 11/16/17 17:00 96 11/16/17 17:00 97.7 79 18 146/66 (92) 95 11/16/17 16:45 70 14 115/59 (77) 95 Nasal Cannula 4 11/16/17 16:30 69 14 112/56 (74) 94 Nasal Cannula 4 11/16/17 16:15 68 14 118/56 (76) 92 Nasal Cannula 4 11/16/17 16:00 69 14 128/58 (81) 92 Nasal Cannula 4 11/16/17 15:45 68 14 127/58 (81) 93 Nasal Cannula 4 11/16/17 15:30 73 14 137/65 (89) 95 Nasal Cannula 4 11/16/17 15:15 82 14 174/73 (106) 99 Simple Mask 8 11/16/17 15:07 97.4 79 14 122/70 (87) 100 Simple Mask 8 Labs: Laboratory Tests Test 11/17/17 04:10 White Blood Count 11.9 TH/MM3 (4.0-11.0) Red Blood Count 4.42 MIL/MM3 (4.50-5.90) Hemoglobin 12.5 GM/DL (13.0-17.0) Hematocrit 38.5 % (39.0-51.0) Mean Corpuscular Volume 87.0 FL (80.0-100.0) Mean Corpuscular Hemoglobin 28.2 PG (27.0-34.0) Mean Corpuscular Hemoglobin Concent 32.5 % (32.0-36.0) Red Cell Distribution Width 13.7 % (11.6-17.2) Platelet Count 198 TH/MM3 (150-450) Mean Platelet Volume 8.0 FL (7.0-11.0) Neutrophils (%) (Auto) 89.9 % (16.0-70.0) Lymphocytes (%) (Auto) 4.9 % (9.0-44.0) Monocytes (%) (Auto) 4.6 % (0.0-8.0) Eosinophils (%) (Auto) 0.0 % (0.0-4.0) Basophils (%) (Auto) 0.6 % (0.0-2.0) Neutrophils # (Auto) 10.7 TH/MM3 (1.8-7.7) Lymphocytes # (Auto) 0.6 TH/MM3 (1.0-4.8) Monocytes # (Auto) 0.5 TH/MM3 (0-0.9) Eosinophils # (Auto) 0.0 TH/MM3 (0-0.4) Basophils # (Auto) 0.1 TH/MM3 (0-0.2) CBC Comment DIFF FINAL Differential Comment Blood Urea Nitrogen 32 MG/DL (7-18) Creatinine 2.12 MG/DL (0.60-1.30) Random Glucose 326 MG/DL (74-106) Calcium Level 7.9 MG/DL (8.5-10.1) Sodium Level 135 MEQ/L (136-145) Potassium Level 5.0 MEQ/L (3.5-5.1) Chloride Level 101 MEQ/L (98-107) Carbon Dioxide Level 26.2 MEQ/L (21.0-32.0) Anion Gap 8 MEQ/L (5-15) Estimat Glomerular Filtration Rate 31 ML/MIN (>89) Result Diagram: 11/17/17 0410 11/17/17 0410 (1) Biventricular automatic implantable cardioverter defibrillator in situ (2) S/P cardiac pacemaker procedure (3) Hx of ventricular fibrillation (4) Diabetes mellitus (5) Hypertension (6) CHF (congestive heart failure) Sekou Gross MD Nov 17, 2017 10:28
[2017-11-17] MEDS ORDERED: HYDR-3516 PO (10:31)
--- NOTE | 2017-11-17 11:03 | HHI.FF ---
Face to Face Verification Diagnosis: (1) S/P cardiac pacemaker procedure (2) CHF (congestive heart failure) (3) Biventricular automatic implantable cardioverter defibrillator in situ I have seen patient Carlos Wiggins on 11/17/17. My clinical findings support the need for the requested home health care services because: Deconditioned w/ increased weakness I certify that my clinical findings support that this patient is homebound because: Post-op weakness Sekou Gross MD Nov 17, 2017 11:03
[2017-11-17] MEDS: CEPHALEXIN MONOHYDRATE 500 MG CAP PO SCH (21:22)
[2017-11-17] MEDS: DOCUSATE CALCIUM 240 MG CAP PO SCH (21:23)
[2017-11-17] MEDS: PANTOPRAZOLE SOD 40 MG DELAYED RELEASE TAB PO SCH (21:23)
[2017-11-18] VITALS (12 sets, daily range): BP systolic 123–127; BP diastolic 58–61; PULSE 68–98; RESP 18–20; TEMP 97.8–99.2; O2SAT 91–95
[2017-11-18] MEDS: ACETAMINOPHEN/HYDROcodone 325 MG/5 MG TAB PO PRN ×2 (00:45→06:23)
[2017-11-18] MEDS: RESP: ALBUTEROL 2.5 MG/3 ML NEB (SCH) NEB ×2 (04:05→10:12)
[2017-11-18] MEDS: CEPHALEXIN MONOHYDRATE 500 MG CAP PO SCH (08:48)
[2017-11-18] MEDS: SODIUM CHLORIDE 0.9% FLUSH 10 ML FLUSH IV FLUSH SCH (08:48)
[2017-11-18] MEDS ORDERED: CEPH500C PO (10:07)
--- NOTE | 2017-11-18 10:12 | HHI.DS ---
Discharge Summary Admission Date Nov 16, 2017 at 08:24 Discharge Date: Nov 18, 2017 Admitting Diagnosis (1) S/P cardiac pacemaker procedure ICD Codes: Z95.0 - Presence of cardiac pacemaker (2) Biventricular automatic implantable cardioverter defibrillator in situ ICD Codes: Z95.810 - Presence of automatic (implantable) cardiac defibrillator (3) Hx of ventricular fibrillation ICD Codes: Z86.79 - Personal history of other diseases of the circulatory system Status: Resolved (4) Hypertension ICD Codes: I10 - Essential (primary) hypertension (5) CHF (congestive heart failure) ICD Codes: I50.9 - Heart failure, unspecified CBC/BMP: 11/17/17 0410 11/17/17 0410 Significant Findings Laboratory Tests Test 11/16/17 09:00 11/17/17 04:10 White Blood Count 11.9 TH/MM3 (4.0-11.0) Red Blood Count 4.42 MIL/MM3 (4.50-5.90) Hemoglobin 12.5 GM/DL (13.0-17.0) Hematocrit 38.5 % (39.0-51.0) Neutrophils (%) (Auto) 89.9 % (16.0-70.0) Lymphocytes (%) (Auto) 4.9 % (9.0-44.0) Neutrophils # (Auto) 10.7 TH/MM3 (1.8-7.7) Lymphocytes # (Auto) 0.6 TH/MM3 (1.0-4.8) Blood Urea Nitrogen 32 MG/DL (7-18) Creatinine 2.12 MG/DL (0.60-1.30) Random Glucose 326 MG/DL (74-106) Calcium Level 7.9 MG/DL (8.5-10.1) Sodium Level 135 MEQ/L (136-145) Estimat Glomerular Filtration Rate 31 ML/MIN (>89) Hospital Course [address] Keys with cardiomyopathy who is s/p previous biventricular ICD placement. He now presents with non-function of his CS lead and malposition of his RA lead. 11/16 PROCEDURES 1. Left Anterior Mini-Thoracotomy 2. Epicardial Left Ventricular Lead Placement 3. Repositioning of Right Atrial Lead 4. Removal of Coronary Sinus Lead 5. Removal and Replacement of BiVentricular Pacemaker ICD Generator Device 6. Intercostal nerve Block. 11/17 Doing well D/C CT Discharge home in am 11/18 D/C Home Pt Condition on Discharge: Good Discharge Disposition: Disch w/ Home Health Serv Discharge Instructions DIET: Follow Instructions for: Heart Healthy Diet Activities you can perform: Full Weight Bearing, Shower Only-No Bath Activities to avoid: Lifting/Bending, Driving Follow up Referrals: Appointment for Follow Up - 2 Weeks with [facility] - 4 Weeks with Theresa Keys MD PCP Follow-up - 2 Weeks New Medications: Cephalexin (Cephalexin) 500 Mg Cap 500 MG PO BID for z for 7 Days, #14 CAP Hydrocodone/Acetaminophen (Hydrocodone-Acetamin 5-325 mg) 5 Mg-325 Mg Tablet 1 TAB PO Q3H PRN for PAIN SCALE 3 TO 5, #20 TAB Continued Medications: Albuterol Neb (Albuterol Neb) 2.5 Mg/0.5 Ml Neb 2.5 MG NEB TID NEB PRN for SHORTNESS OF BREATH, #90 NEBULE 0 Refills Note: The Albuterol Sulfate Inhalation Solution is concentrated and must be diluted. Read complete instructions carefully before using. Aspirin (Aspirin) 81 Mg Chew 162 MG CHEW DAILY, TAB 0 Refills Atorvastatin (Atorvastatin) 40 Mg Tab 40 MG PO HS for Cholesterol Management, #30 TAB 0 Refills Atorvastatin (Atorvastatin) 20 Mg Tab 20 MG PO HS for Cholesterol Management, #30 TAB 0 Refills Cholecalciferol (Vitamin D-3) 1,000 Unit Cap 5000 UNITS PO EVERY OTHER DAY Coenzyme Q10 (Ubidecarenone) (Coq-10) 50 Mg Cap Glipizide (Glipizide) 10 Mg Tab 10 MG PO BIDAC for Blood Sugar Management, #60 TAB 0 Refills Take 30 minutes before a meal Ipratropium-Albuterol Inh (Combivent Respimat Inh) 20-100 Alf/Act Aero 1 PUFF INH QID for Asthma Management, #1 INHALER 0 Refills Metoprolol Tartrate (Metoprolol Tartrate) 25 Mg Tab 25 MG PO BID, #60 TAB 0 Refills Ranitidine (Ranitidine) 150 Mg Cap 150 MG PO BID, #60 CAP 0 Refills Sertraline (Sertraline) 50 Mg Tab 50 MG PO DAILY, #30 TAB 0 Refills Sitagliptin (Januvia) 25 Mg Tab 50 MG PO DAILY for Blood Sugar Management, #30 TAB 0 Refills Umeclidinium-Vilanterol Inh (Anoro Ellipta Inh) 62.5-25 Mcg/Act Aero 1 PUFF INH DAILY for COPD, #1 INHALER 0 Refills Sekou Gross MD Nov 18, 2017 10:12
--- NOTE | 2017-11-18 10:21 | HHI.FF ---
Face to Face Verification Diagnosis: (1) S/P cardiac pacemaker procedure (2) Biventricular automatic implantable cardioverter defibrillator in situ (3) Hx of ventricular fibrillation (4) Hypertension (5) CHF (congestive heart failure) (6) Diabetes mellitus Home Health Nursing Order: Medical education Wound care and dressing changes Nursing assessment with vital signs I have seen patient Carlos Wiggins on 11/18/17. My clinical findings support the need for the requested home health care services because: Ltd mobility - disease progression Deconditioned w/ increased weakness I certify that my clinical findings support that this patient is homebound because: Post-op weakness Sekou Gross MD Nov 18, 2017 10:21
== END 2017-11-18 11:40 | disposition home health service (06) | DRG 227 ==
LOC: HSDI 08:24 → EDSTATUS 12:00 → HCPC 17:09
PROVIDERS: ADMIT Thoracic Surgery (Cardiothoracic Vascular Surgery); ATTEND Thoracic Surgery (Cardiothoracic Vascular Surgery)
PROC: 02HN0KZ Insertion of Defibrillator Lead into Pericardium, Open Approach (ICD-10-PCS; 2017-11-16)
PROC: 02PA0MZ Removal of Cardiac Lead from Heart, Open Approach (ICD-10-PCS; 2017-11-16)
PROC: 0WP Anatomical Regions, General, Removal (ICD-10-PCS; 2017-11-16)
PROC: 0JPT0PZ Removal of Cardiac Rhythm Related Device from Trunk Subcutaneous Tissue and Fascia, Open Approach (ICD-10-PCS; 2017-11-16)
PROC: 3E0T3BZ Introduction of Anesthetic Agent into Peripheral Nerves and Plexi, Percutaneous Approach (ICD-10-PCS; 2017-11-16)
PROC: 0JH609Z Insertion of Cardiac Resynchronization Defibrillator Pulse Generator into Chest Subcutaneous Tissue and Fascia, Open Approach (ICD-10-PCS; principal; 2017-11-16 11:41)
PROC: 02HL3KZ Insertion of Defibrillator Lead into Left Ventricle, Percutaneous Approach (ICD-10-PCS; 2017-11-16 11:41)
DX: I42.9 Cardiomyopathy, unspecified (principal); I11.0 Hypertensive heart disease with heart failure; I50.9 Heart failure, unspecified; T82.191A Other mechanical complication of cardiac pulse generator (battery), initial encounter; T82.120A Displacement of cardiac electrode, initial encounter; Z95.810 Presence of automatic (implantable) cardiac defibrillator
CPT/HCPCS: 71045; 80048; 82948; 85025; 86850; 86900; 86901; 87015; 87070; 87102; 87116; 87205; 87206; 87641; 88300; 94150; 94640; 94664; C9290; J0131; J0690; J1100; J2250; J2270; J2930; J3010; J7120; J7613

== ENCOUNTER 2018-01-08 10:30 | Day surgery (SDC) | payer OTHER ==
[2018-01-08] VITALS (11 sets, daily range): BP systolic 124–137; BP diastolic 64–77; PULSE 51–72; RESP 18–20; TEMP 97.8–98.6; O2SAT 92–96
[~2018-01-08] VITALS: Ht 182.9 cm; Wt 100.0 kg
[~2018-01-08 10:30] MED LIST changes: +ATOR20TA15 PO; +CEPH500C PO; +HYDR-3516 PO; -NORC5TAB PO
[2018-01-08] MEDS ORDERED: ceFAZolin 2 GM PREMIX 50 ML IV SCH (11:15)
[2018-01-08] MEDS ORDERED: METOPROLOL TARTRATE 25 MG TAB PO PRN (11:15)
[2018-01-08] MEDS ORDERED: CHLORHEXIDINE GLUCONATE 2 % 1 PACK (2 CLOTHS) TOPICAL SCH (11:15)
[2018-01-08] MEDS ORDERED: POVIDONE IODINE 5% (ANTISEPSIS KIT) 4 APPLICATIONS EACH NARE PRN (11:15)
[2018-01-08] MEDS ORDERED: LORazepam 1 MG TAB SL SCH (11:15)
[2018-01-08] MEDS ORDERED: POVIDONE IODINE 5% (ANTISEPSIS KIT) 4 APPLICATIONS EACH NARE SCH (11:15)
[2018-01-08] MEDS ORDERED: CHLORHEXIDINE GLUCONATE 2 % 1 PACK (2 CLOTHS) TOPICAL PRN (11:15)
[2018-01-08] MEDS ORDERED: VANCOMYCIN 1000 MG/NS 250 ML IV SCH ×2 (11:15)
[2018-01-08] MEDS ORDERED: MUPIROCIN 2% OINT 1 APPLIC/GM SYR NASAL SCH (11:15)
[2018-01-08] MEDS ORDERED: LACTATED RINGER'S 1000 ML IV PRN (11:15)
[2018-01-08] MEDS ORDERED: SODIUM CHLORID 0.9% 500 ML IV PRN (11:15)
[2018-01-08 11:42] LABS: AUTOMATED NEUTROPHIL # 6.2 TH/MM3 (1.8-7.7); BASOPHIL % 0.5 % (0.0-2.0); EOSINOPHIL # 0.3 TH/MM3 (0-0.4); EOSINOPHIL % 3.2 % (0.0-4.0); HEMATOCRIT 41.1 % (39.0-51.0); HEMOGLOBIN 13.4 GM/DL (13.0-17.0); LYMPH % 16.8 % (9.0-44.0); LYMPHOCYTE # 1.5 TH/MM3 (1.0-4.8); MEAN CELL VOLUME 87.1 FL (80.0-100.0); MEAN CORPUSCULAR HEMOGLOBIN 28.4 PG (27.0-34.0); MEAN CORPUSCULAR HGB CONC 32.6 % (32.0-36.0); MEAN PLATELET VOLUME 9.1 FL (7.0-11.0); MONO % 7.5 % (0.0-8.0); MONOCYTE # 0.7 TH/MM3 (0-0.9); PLATELET COUNT 200 TH/MM3 (150-450); RED BLOOD COUNT 4.72 MIL/MM3 (4.50-5.90); RED CELL DISTRIBUTION WIDTH 13.9 % (11.6-17.2); WHITE BLOOD COUNT 8.7 TH/MM3 (4.0-11.0)
[2018-01-08] MEDS ORDERED: ePHEDrine/NS 25 MG/5 ML SYRINGE IV ONE (12:00)
[2018-01-08] MEDS ORDERED: LIDOCAINE HCL 1% PF 5 ML SYRINGE OTHER ONE (12:00)
[2018-01-08] MEDS ORDERED: PROPOFOL 200 MG/20 ML AMP IV ONE (12:00)
[2018-01-08] MEDS ORDERED: NS 1000 ML IV SCH (12:00)
[2018-01-08 12:02] LABS: BICARBONATE 28.8 MEQ/L (21.0-32.0); CALCIUM 9.2 MG/DL (8.5-10.1); CREATININE 1.68 MG/DL (0.60-1.30)
[2018-01-08] MEDS ORDERED: LIDOCAINE HCL 2% 20 ML VIAL ONE (12:57)
[2018-01-08] MEDS ORDERED: VANCOMYCIN 500 MG VIAL ONE (12:57)
[2018-01-08] MEDS ORDERED: MAGNESIUM HYDROXIDE SUSP 30 ML CUP PO PRN (13:45)
[2018-01-08] MEDS ORDERED: ALUMINUM/MAGNESIUM/SIMETH 30 ML CUP PO PRN (13:45)
[2018-01-08] MEDS ORDERED: SODIUM CHLORIDE 0.9% FLUSH 10 ML FLUSH IV FLUSH PRN (13:45)
[2018-01-08] MEDS ORDERED: TEMAZEPAM 15 MG CAP PO PRN (13:45)
[2018-01-08] MEDS ORDERED: ACETAMINOPHEN/CODEINE 300 MG/30 MG TAB PO PRN ×2 (13:45)
[2018-01-08] MEDS ORDERED: ONDANSETRON HCL 4 MG/2 ML VIAL IV PUSH PRN (13:45)
[2018-01-08] MEDS ORDERED: ACETAMINOPHEN/HYDROcodone 325 MG/5 MG TAB PO PRN (13:45)
--- NOTE | 2018-01-08 14:03 | CATHPROC ---
Patient Name: ROBERT LIM Study #: [id number] Initial MD: Theresa Keys Date of : 1945 Study Date: 01/08/2018 Cardiac Catheterization Report 01/08/2018 2:03:32 PM Financial #: [id number] 1 of 9 Patient Name: ROBERT LIM Study #: [id number] Initial MD: Theresa Keys Date of : 1945 Study Date: 01/08/2018 Entire Case Report Patient Information Patient Name ROBERT LIM Date of 1945 Age 72 years Financial # [id number] Gender M AlternateID Lab Number 2 Room Number DC08 Height (in) 72.0 Height (cm) 182.9 BSA 2.23 Weight (lbs) 222.0 Weight (kg) 100.9 Patient Address/Phone Number Home Address [facility] Home Phone Number [phone] [facility] [id number] Study Information Study Number Admission Scheduled Start Study Start [id number] Jan 08 2018 10:30AM 01/08/2018 Jan 08 2018 12:45PM [facility] Cardiac Pacer/ICD Admit Source Facility Department Other [facility] Physician and Clinical Staff Initial Theresa Greer Purler Azra Ji RCIS Purler Marina [place] RN Other Anesthesia, PHYSICIAN GENERAL INTERNAL MEDICINE Recorder Sandie Rodriguez,NIELS Scrub Gerry Watkins,RT(R) Procedures Performed Procedure Location (Site) Vessel Name Lead Insertion Wire insertion Subclav. Vein (Lft Subclavian Vein 01/08/2018 2:03:32 PM Financial #: [id number] 2 of 9 Patient Name: ROBERT LIM Study #: [id number] Initial MD: Theresa Keys Date of : 1945 Study Date: 01/08/2018 Equipment Time Water Filterer Description Size Mfg Part Number Used/Scraped 13:32 BIOTRONIK LEAD, SOLIA 60 53 PRO MRI * [id number] Used DERMABOND, ADHESIVE SKIN [facility] 12:52 CORDIS/PACER * Used GLUE MINI *[id number] WIRE, HYDROSTEER 150CM [id number] 13:28 DAIG/[facility] 150CM Used ANGLED GLIDE *[id number] 12:52 MEDLINE [employer] Reklaim BLANKET,WARM AIR CCL * Used *[id number] TP-1103 12:52 MEDLINE [employer] SUTURE, STRIP PLUS 1/2" * Used *[id number] 12:52 MEDLINE PACER BHATIA, LIMB * 2530 *[id number] Used [id number] 12:52 MEDLINE PACER PACK, PACER CUSTOM * Used *[id number] 13:07 Needle Sponge Count 2 2 Used 13:06 Needle Sponge Count 2 22 Used 13:06 Needle Sponge Count 20 200 Used 13:25 Needle Sponge Count 3 3 Used SUTURE, 0 ETHIBOND [CT1] (CX21D), 8pk SUTURE, 2-0 VICRYL [CT1] ([id number]) SUTURE, 2-0 VICRYL [CT1] ([id number]) [id number] 13:28 [facility] SHEATH, EPS, FR5 FAST CATH FR 5 Used *[id number] [facility] PAD, ELECTROSURGICAL 12:52 * [id number] *[id number] Used SURGICAL GROUNDING ORANGE 6616-1289 12:52 [employer] MG. / * Used *[id number] Equipment Model, Serial, Lot Number and Expiration Data Description Model Number Serial Number Lot Number Expiration Date JERAMIE GODFREY 60 53 PRO MRI [id number] 08-05-2019 Insurance Information Insurance Payor Private Health Insurance Third Libertarian Third Libertarian Number [employer] GOLD PLUS O HUMCRHMO 01/08/2018 2:03:32 PM Financial #: [id number] 3 of 9 Patient Name: ROBERT LIM Study #: [id number] Initial MD: Theresa Keys Date of : 1945 Study Date: 01/08/2018 History: Allergies Allergy Reaction captopril lisinopril benazepril quinapril fosinopril losartan Cough enalaprilat History: Risk Factors Hypertension Previous IA Previous Heart Failure Yes Yes Yes Prior PCI Yes Peripheral Artery Chronic Lung Diabetes Diabetes Therapy Disease Disease Yes Yes Yes Oral Labs Hgb (g/dl) Hct (%) RBC (MIL/MM3) WBC (l/cumm) Platelets (thousands) 11.60-17.00 35.00-51.00 4.00-5.90 4.00-11.00 150.00-450.00 13.4 41.1 4.7 8.7 200 Glucose (mg/dl) BUN (mg/dl) Creatinine (mg/dl) BUN:Creatinine (1:x) 74.00-106.00 7.00-18.00 0.50-1.30 10.00-20.00 162 21 1.7 12.4 Na (meq/l) K (meq/l) 136.00-145.00 3.50-5.10 140 4.5 Medication Medication Total Dose (Bolus/Oral) Medication Total Dosage/Unit 2% XYLOCAINE 40 mL Medications (Bolus/Oral) Medication Time Given Dosage/Unit Administered By Reason 2% XYLOCAINE 01/08/2018 1:18:25 PM 40 mL Theresa Keys 40 mL 2% XYLOCAINE given in lab by Theresa Keys in Left shoulder via Subcutaneous. Ordered by Theresa Keys. 01/08/2018 2:03:32 PM Financial #: [id number] Patient Name: ROBERT LIM Study #: [id number] Initial MD: Theresa Keys Date of : 1945 Study Date: 01/08/2018 Medication (Drip) Medication Time Given Dosage/Unit Concentration/Unit Diluent (ml) Solution ANCEF 01/08/2018 12:57:41 PM 2 g 2 g ANCEF given in lab by Anesthesia, PHYSICIAN GENERAL INTERNAL MEDICINE via Peripheral IV. Ordered by Theresa Keys. Reason: As pe r physicians verbal order. VANCOMYCIN DRIP 01/08/2018 12:57:07 PM 1 g 1 g VANCOMYCIN DRIP given in lab by Anesthesia, PHYSICIAN GENERAL INTERNAL MEDICINE via Peripheral IV. Ordered by Theresa Keys. Ching son: As per physicians verbal order. Initial Case Assessment Cardiovascular HR NIBP 112 121/57 Edema Present Skin color Skin None Normal Warm Dry Circulatory - Right Pulses Dorsalis Pedis 1 Scale (0,1,2,3,4,d) Circulatory - Left Pulses Dorsalis Pedis 1 Scale (0,1,2,3,4,d) Circulatory - Lower Extremities Color Lower Right Color Lower Left Normal Normal Neurological State Oriented to time-place- Alert Moves all extremities person Respiration - General Respiration Rate SpO2 (%) (B/min) 16 99 01/08/2018 2:03:32 PM Financial #: [id number] 5 of 9 Patient Name: ROBERT LIM Study #: [id number] Initial MD: Theresa Keys Date of : 1945 Study Date: 01/08/2018 Final Case Assessment Cardiovascular HR NIBP 66 116/60 Edema Present Skin color Skin None Normal Warm Dry Circulatory - Right Pulses Dorsalis Pedis 1 Scale (0,1,2,3,4,d) Circulatory - Left Pulses Dorsalis Pedis 1 Scale (0,1,2,3,4,d) Circulatory - Lower Extremities Color Lower Right Color Lower Left Normal Normal Neurological State Drowsy Moves all extremities Respiration - General Respiration Rate SpO2 (%) (B/min) 14 100 Chronological Log Time Study Chronological Log 12:49:26 Patient arrived via Bed. 12:49:26 Patient Name, D.O.B, / Armband Verified By R.N. 12:49:39 Consent signed by the physician and the patient and verified by the [facility] staff. 12:49:40 Pre-op and post- op instructions given; patient acknowledges understanding of instructions. 12:49:42 Anesthesia at bedside. Assumes care of patient. 12:49:45 Patient has been NPO for More than 6Hrs. 12:49:49 Skin Breakdown- none per pt 12:49:52 2% CHLORHEXIDINE GLUCONATE WASH AND NASAL SWIPE DONE PRIOR TO PROCEDURE. 12:49:56 Patient Warmer Placed on the Table. 01/08/2018 2:03:32 PM Financial #: [id number] 6 of 9 Patient Name: ROBERT LIM Study #: [id number] Initial MD: Theresa Keys Date of : 1945 Study Date: 01/08/2018 12:49:59 Disposable Defibrillator Pads Placed On Patient. 12:50:00 Marci Prominences Protected 12:50:02 A # 20 IV was noted in the Hand (right). Grade = 0 0.9% NaCl @ KVO 12:50:11 A # 20 IV was noted in the Antecubital (left). Grade = 0 0.9% NaCl @ KVO 12:52:35 History and physical on the chart. 12:54:07 Dr. Inman here from anesthesia for LMA insertion 12:56:16 Table restraints applied according to hospital policy 1 g VANCOMYCIN DRIP given in lab by Anesthesia, PHYSICIAN GENERAL INTERNAL MEDICINE via Peripheral IV. Ordered by Argelia Keys Reason: As per 12:57:07 physicians verbal order. 2 g ANCEF given in lab by Anesthesia, PHYSICIAN GENERAL INTERNAL MEDICINE via Peripheral IV. Ordered by Theresa Keys. Reason: As per physicians 12:57:41 verbal order. 12:58:00 Taccharrythmia settings deactivated by rep per Dr. Keys's order 12:59:30 Bovie ground pad applied to: right thigh Assessment: Initial Case, NK=391 BPM, QNEB=868/57 mmhg, Edema=None, Color=Normal, Skin = Warm, Dry Right Pulses: Vimal Ped=1 Left Pulses: Vimal Ped=1 13:00:03 Lower Right Extremities: Color=Normal Lower Left Extremities: Color=Normal Neurological: State=Alert, Ox3, QUAN Respiration: Resp=16 B/min, SpO2=99 % 13:03:04 LMA inserted 13:07:34 Left Upper Chest Prepped Times Two. First Sponge And Instrument Count Done by Azra Ji RCIS. 13:11:16 Hypo's: 2, Sponges: 20, Bovie/scratch: 2 Sutures: 11, Blades: 1, Instruments: 26, Syveck Patches: ~SYVECK PATCH~ verified by MM 13:12:08 A sterile drape was applied after a 5 minute drying time. 13:13:48 MD arrived. Time Out. Correct patient, procedure, procedure equipment, site and side verified with physicia n present. Time 13:17:46 concurred by MD, individual staff and PHYSICIAN GENERAL INTERNAL MEDICINE. Time Out #2 - Consents verified, patient in correct position, all results are labled and displa yed, safety precautions 13:17:53 taken, antibiotics administered. Time out concurred by MD, individual staff and PHYSICIAN GENERAL INTERNAL MEDICINE in procedu re 13:17:55 Case Start 13:18:25 40 mL 2% XYLOCAINE given in lab by Theresa Keys in Left shoulder via Subcutaneous. Ordered by Theresa Keys. 13:19:51 Surgical Incision Made. 13:20:43 A pocket was created at the Lt. upper chest. 13:21:53 Vascular access was obtained in the Subclav. Vein (Lft. 13:24:36 Wire inserted 13:26:32 Wire out. 13:26:45 5fr dilator used 13:27:23 A SHEATH, EPS, FR5 FAST CATH FR 5 was advanced into the Fem Vein (right) using the Modified Seldinger technique. 13:28:06 A WIRE, HYDROSTEER 150CM ANGLED GLIDE 150CM was inserted via Subclav. Vein (Lft. 13:28:53 A LEAD, SOLIA 60 53 PRO MRI * was inserted and positioned in the RA. 01/08/2018 2:03:32 PM Financial #: [id number] 7 of Patient Name: ROBERT LIM Study #: [id number] Initial MD: Theresa Keys Date of : 1945 Study Date: 01/08/2018 13:29:06 Lead placement verified under fluoroscopy 13:29:47 Wire out 13:29:48 The Atrial lead impedance and threshold is being tested. 13:33:49 The Atrial lead was sutured to the fascia. 13:38:37 The pocket is being closed. 13:38:51 Case End 13:39:03 PACU called. Spoke to Klaudia Alegria Sponge And Instrument Count Done by Azra Ji RCIS. 13:41:23 Hypo's: 2, Sponges: 20, Bovie/scratch: 2 Sutures: 11, Blades: 1, Instruments: ~INSTRU~, Syveck Patches: ~SYVECK PATCH~ verified by MM 13:42:03 Holding Area notified of successful intervention. 13:42:07 No case complications noted. 13:42:09 Cine recording checked. 13:42:15 Bedside Report will be given. 13:42:27 Implant Procedure was performed. 13:42:34 A Lead Revision . (Single) 13:54:27 The pocket was closed. Final Sponge And Instrument Count Done by Azra Ji RCIS. 13:57:53 Hypo's: 2, Sponges: 20, Bovie/scratch: 2 Sutures: 11, Blades: 1, Instruments: 26, Syveck Patches: ~SYVECK PATCH~ verified by MM 13:59:02 LMA was removed by anesthesia. Pt placed to supplemental oxygen by FM 14:02:26 Steri-strips and a sterile dressing applied to site. Assessment: Final Case, HR=66 BPM, PFTT=987/60 mmhg, Edema=None, Color=Normal, Skin = Warm, Dr y Right Pulses: Vimal Ped=1 Left Pulses: Vimal Ped=1 14:05:20 Lower Right Extremities: Color=Normal Lower Left Extremities: Color=Normal Neurological: State=Drowsy, QUAN Respiration: Resp=14 B/min, BuP3=184 % 14:07:33 A sling was placed on the affected arm. 14:08:00 Defibrillator and ground pads removed. Skin intact. 14:09:[address] [facility] with PHYSICIAN GENERAL INTERNAL MEDICINE and tech accompanying End Study - Contrast Media Used In Study Contrast Total Opened (mL) Total Used (mL) Total Wasted (mL) Unspecified 0 0 0 01/08/2018 2:03:32 PM Financial #: [id number] Patient Name: ROBERT LIM Study #: [id number] Initial MD: Theresa Keys Date of : 1945 Study Date: 01/08/2018 End Study - Maximum Contrast Load Max Contrast Load (mL) 296.8 End Study - Radiation Exposure Fluoro Time (minutes) 2.8 End Study - Patient Disposition Complications Transferred To No Telemetry Bed 01/08/2018 2:03:32 PM Financial #: [id number]
[2018-01-08] MEDS ORDERED: DO NOT ADM ANY ANTICOAGULANT DRUGS PRN (14:23)
[2018-01-08] MEDS ORDERED: *morphine SULFATE 4 MG/ML PERIprocedure ONLY ONE (14:39)
[2018-01-08] MEDS ORDERED: PILL SPLITTER OTHER PRN (14:45)
--- NOTE | 2018-01-08 15:38 | RADRPT ---
EXAM DATE: 01/08/2018 3:10 PM EDT AGE/SEX: 72 years / Male INDICATIONS: Status post pacemaker on left side, evaluate for pneumothorax. CLINICAL DATA: This is the patient's initial encounter. Patient reports that signs and symptoms have been present for 1 day and indicates a pain score of 0/10. MEDICAL/SURGICAL HISTORY: Congestive heart failure. Hypertension. Chronic obstructive pulmona ry disease. AFIB. . Stents. COMPARISON: [facility] [place], CHEST SINGLE AP, 11/17/2017. . FINDINGS: There does appear to be a moderate size left pneumothorax with air not only in the apex down the left lateral costophrenic angle. Left subclavian bipolar pacer in good position. Right lung is clear CONCLUSION: Left-sided pneumothorax Electronically signed by: Rodrick Baez MD 01/08/2018 3:37 PM EDT
[2018-01-08] MEDS: glipiZIDE 10 MG TAB PO SCH (16:29)
--- NOTE | 2018-01-08 16:35 | EKG ---
Date Performed: 01/08/2018 Time Performed: 11:17:04 PTAGE: 72 years EKG: Sinus bradycardia Indeterminate axis IV conduction defect Lateral infarct - age undetermine d Possible anterior infarct - age undetermined Inferior ST-T changes are nonspecific Abnormal ECG PREVIOUS TRACING : 10/11/2017 05.27 Since the prior tracing, the patient has developed worsenin g anterolateral T-wave changes. Myocardial ischemia needs to be excluded clinically. DOCTOR: Candelaria Baires Interpretating Date/Time 01/08/2018 16:34:58
--- NOTE | 2018-01-08 17:13 | EKG ---
Date Performed: 01/08/2018 Time Performed: 14:41:30 PTAGE: 72 years EKG: ELECTRONIC ATRIAL PACEMAKER ELECTRONIC VENTRICULAR PACEMAKER ABNORMAL RHYTHM ECG PREVIOUS TRACING : 01/08/2018 11.17 Since the previous tracing, no significant change noted DOCTOR: Reina Arita Interpretating Date/Time 01/08/2018 17:12:28
[2018-01-08] MEDS ORDERED: NON-FORMULARY DRUG (Ipratropium-Albuterol Inh (Combivent Respimat Inh) 1 PUFF) INH SCH (18:00)
[2018-01-08] MEDS ORDERED: NON-FORMULARY DRUG (Ranitidine 150 MG) PO SCH (21:00)
[2018-01-08] MEDS ORDERED: ATORVASTATIN 40 MG TAB PO SCH (21:00)
[2018-01-08] MEDS: ceFAZolin 2 GM PREMIX 50 ML IV SCH (21:12)
[2018-01-08] MEDS: METOPROLOL TARTRATE 25 MG TAB PO SCH (21:13)
[2018-01-08] MEDS: FAMOTIDINE 20 MG TAB PO SCH (21:13)
[2018-01-08] MEDS: ALBUTEROL SULFATE 90 MCG/ACT HFA 8 GM INHALER INH SCH (21:13)
[2018-01-08] MEDS: SODIUM CHLORIDE 0.9% FLUSH 10 ML FLUSH IV FLUSH SCH (21:13)
[2018-01-09] VITALS (21 sets, daily range): BP systolic 132–154; BP diastolic 60–69; PULSE 60–71; RESP 16–18; TEMP 97.4–98.4; O2SAT 95–99
[2018-01-09] MEDS: ceFAZolin 2 GM PREMIX 50 ML IV SCH ×2 (05:10→13:00)
[2018-01-09] MEDS: glipiZIDE 10 MG TAB PO SCH ×2 (06:55→16:54)
[2018-01-09] MEDS: SODIUM CHLORIDE 0.9% FLUSH 10 ML FLUSH IV FLUSH SCH (08:01)
[2018-01-09] MEDS: FAMOTIDINE 20 MG TAB PO SCH (08:04)
[2018-01-09] MEDS: METOPROLOL TARTRATE 25 MG TAB PO SCH (08:04)
--- NOTE | 2018-01-09 08:24 | PD.CARD.PN ---
Subjective Subjective Remarks Mild dyspnea (Karen Herrera) Objective Medications Current Medications Medications (Trade) Dose Ordered Sig/Jhon Route Start Time Stop Time Status Last Admin Sodium Chloride 1,000 ml @ 30 mls/hr Q24H IV 01/08/18 12:00 Cefazolin Sodium/ Dextrose 50 ml @ 100 mls/hr TEXTILE MACHINE MAINTENANCE MECHANIC IV 01/08/18 11:15 01/11/18 11:14 01/08/18 12:57 Vancomycin HCl 1000 mg/Sodium Chloride 250 ml @ 250 mls/hr TEXTILE MACHINE MAINTENANCE MECHANIC IV 01/08/18 11:15 01/11/18 11:14 01/08/18 12:57 (Ativan) 1 mg TEXTILE MACHINE MAINTENANCE MECHANIC SL 01/08/18 11:15 01/11/18 11:14 (Betadine 5% Antisepsis Kit) 2 applic TEXTILE MACHINE MAINTENANCE MECHANIC EACH NARE 01/08/18 11:15 01/11/18 11:14 01/08/18 11:49 (Bactroban Nasal 2% Oint) 1 applic TEXTILE MACHINE MAINTENANCE MECHANIC NASAL 01/08/18 11:15 01/11/18 11:14 (Chlorhexidine 2% Cloth) 3 pack TEXTILE MACHINE MAINTENANCE MECHANIC TOPICAL 01/08/18 11:15 01/11/18 11:14 01/08/18 11:49 Lactated Ringer's 1,000 ml @ 30 mls/hr Q24H PRN IV 01/08/18 11:15 01/11/18 11:14 Sodium Chloride 500 ml @ 30 mls/hr [id number] PRN IV 01/08/18 11:15 01/11/18 11:14 (Lopressor) 25 mg TEXTILE MACHINE MAINTENANCE MECHANIC PRN PO 01/08/18 11:15 01/11/18 11:14 (Betadine 5% Antisepsis Kit) 1 applic TEXTILE MACHINE MAINTENANCE MECHANIC PRN EACH NARE 01/08/18 11:15 01/11/18 11:14 01/08/18 11:46 (Chlorhexidine 2% Cloth) 3 pack TEXTILE MACHINE MAINTENANCE MECHANIC PRN TOPICAL 01/08/18 11:15 01/11/18 11:14 01/08/18 11:46 Cefazolin Sodium/ Dextrose 50 ml @ 100 mls/hr Q8H IV 01/08/18 21:00 01/09/18 13:29 01/09/18 05:10 (Restoril) 15 mg HS PRN PO 01/08/18 13:45 01/08/18 23:44 (Milk Of Magnesia Liq) 30 ml Q6H PRN PO 01/08/18 13:45 (Mag-Al Plus Susp Liq) 30 ml Q2H PRN PO 01/08/18 13:45 (Zofran Inj) 4 mg Q4H PRN IV PUSH 01/08/18 13:45 (Tylenol-Codeine #3) 1 tab Q4H PRN PO 01/08/18 13:45 (Tylenol-Codeine #3) 2 tab Q4H PRN PO 01/08/18 13:45 (NS Flush) 2 ml BID IV FLUSH 01/08/18 21:00 01/09/18 08:01 (NS Flush) 2 ml UNSCH PRN IV FLUSH 01/08/18 13:45 (Aspirin Chew) 162 mg DAILY CHEW 01/09/18 09:00 01/09/18 08:03 (Lipitor) 40 mg HS PO 01/08/18 21:00 01/08/18 21:13 (Glucotrol) 10 mg BIDAC PO 01/08/18 16:00 01/09/18 06:55 (Lopressor) 25 mg BID PO 01/08/18 21:00 01/09/18 08:04 (Zoloft) 50 mg DAILY PO 01/09/18 09:00 01/09/18 08:04 (Januvia) 50 mg DAILY PO 01/09/18 09:00 01/09/18 08:03 (Vitamin D3) 5,000 units EVERY OTHER DAY PO 01/09/18 09:00 01/09/18 08:03 (Pepcid) 10 mg BID PO 01/08/18 21:00 01/09/18 08:04 (Pill Splitter) 1 ea UNSCH PRN OTHER 01/08/18 14:45 ([facility] Nursing Information) ALL NURSING DEPARTME... UNSCH PRN .XX 01/08/18 14:23 01/09/18 14:22 (Proair Hfa Inh) 1 puff QID INH 01/08/18 21:00 01/08/18 21:13 (Spiriva Inh) 18 mcg DAILY INH 01/09/18 09:00 Vital Signs / I&O Vital Signs Date Time Temp Pulse Resp B/P (MAP) Pulse Ox O2 Delivery O2 Flow Rate FiO2 01/09/18 07:21 97.4 63 16 134/69 (90) 97 01/09/18 07:21 63 01/09/18 06:00 61 01/09/18 05:00 60 01/09/18 04:00 65 01/09/18 03:45 97.6 68 18 132/60 (84) 97 01/09/18 03:00 61 01/09/18 02:00 62 01/09/18 01:00 65 01/09/18 00:00 67 01/08/18 23:30 98.3 67 18 129/67 (87) 93 01/08/18 23:00 70 01/08/18 22:00 68 01/08/18 21:00 70 01/08/18 20:00 97.8 72 18 135/64 (87) 92 01/08/18 20:00 68 01/08/18 19:00 68 01/08/18 18:00 69 01/08/18 17:00 64 01/08/18 16:00 60 01/08/18 15:45 60 01/08/18 15:45 98.1 62 20 124/65 (84) 94 01/08/18 15:00 59 18 113/64 (80) 97 Room Air 01/08/18 14:45 59 21 113/64 (80) 96 Nasal Cannula 2 01/08/18 14:30 60 17 111/59 (76) 99 Nasal Cannula 2 01/08/18 14:22 98.1 61 24 119/57 (77) 100 Nasal Cannula 2 01/08/18 11:03 98.6 51 18 137/77 (97) 96 I/O 01/08/18 01/08/18 01/08/18 01/09/18 01/09/18 01/09/18 07:00 15:00 23:00 07:00 15:00 23:00 Intake Total 480 ml 340 ml Output Total 200 ml 500 ml Balance 280 ml -160 ml Intake Oral 480 ml 240 ml IV Total 100 ml Output Urine Total 200 ml 500 ml # Voids 1 # Bowel Movements 0 0 Physical Exam GENERAL: Well-nourished, well-developed patient. SKIN: Warm and dry. LCW incision well approximated without erythema or drainage. HEAD: Normocephalic. EYES: No scleral icterus. No injection or drainage. NECK: Supple, trachea midline. No JVD or lymphadenopathy. CARDIOVASCULAR: Regular rate and rhythm without murmurs, gallops, or rubs. RESPIRATORY: Breath sounds diminished L>R, BB crackles. GASTROINTESTINAL: Abdomen soft, non-tender, nondistended. EXTREMITIES: No cyanosis. Trace dependent edema. NEUROLOGICAL: Awake, alert, and oriented x 3. Non-focal. Laboratory Laboratory Tests Test 01/08/18 10:54 White Blood Count 8.7 TH/MM3 Red Blood Count 4.72 MIL/MM3 Hemoglobin 13.4 GM/DL Hematocrit 41.1 % Mean Corpuscular Volume 87.1 FL Mean Corpuscular Hemoglobin 28.4 PG Mean Corpuscular Hemoglobin Concent 32.6 % Red Cell Distribution Width 13.9 % Platelet Count 200 TH/MM3 Mean Platelet Volume 9.1 FL Neutrophils (%) (Auto) 72.0 % Lymphocytes (%) (Auto) 16.8 % Monocytes (%) (Auto) 7.5 % Eosinophils (%) (Auto) 3.2 % Basophils (%) (Auto) 0.5 % Neutrophils # (Auto) 6.2 TH/MM3 Lymphocytes # (Auto) 1.5 TH/MM3 Monocytes # (Auto) 0.7 TH/MM3 Eosinophils # (Auto) 0.3 TH/MM3 Basophils # (Auto) 0.0 TH/MM3 CBC Comment DIFF FINAL Differential Comment Prothrombin Time 10.0 SEC Prothromb Time International Ratio 1.0 RATIO Activated Partial Thromboplast Time 21.2 SEC Blood Urea Nitrogen 21 MG/DL Creatinine 1.68 MG/DL Random Glucose 162 MG/DL Calcium Level 9.2 MG/DL Sodium Level 140 MEQ/L Potassium Level 4.5 MEQ/L Chloride Level 103 MEQ/L Carbon Dioxide Level 28.8 MEQ/L Anion Gap 8 MEQ/L Estimat Glomerular Filtration Rate 41 ML/MIN Imaging Last Impressions Chest X-Ray 01/08/18 0000 Signed Impressions: CONCLUSION: Left-sided pneumothorax (Karen Herrera) Assessment and Plan Problem List: (1) ICD (implantable cardioverter-defibrillator) lead failure ICD Codes: T82.110A - Breakdown (mechanical) of cardiac electrode, initial encounter Plan: s/p replacement of RA lead. Extensive education given on left arm/ pectoral muscle/lifting restrictions. (2) Pneumothorax on left ICD Codes: J93.9 - Pneumothorax, unspecified Plan: Consult interventional radiology for evaluation of Left pneumothorax. Plan d/w Dr. Keys, RN, pt. (Karen Herrera) Problem List: (1) ICD (implantable cardioverter-defibrillator) lead failure ICD Codes: T82.110A - Breakdown (mechanical) of cardiac electrode, initial encounter Plan: s/p replacement of RA lead. Extensive education given on left arm/ pectoral muscle/lifting restrictions. CHF. Creat 1.68. Entresto will be initiated aware of previous low BP with losartan BMP on Sunday (2) Pneumothorax on left ICD Codes: J93.9 - Pneumothorax, unspecified Plan: Consult interventional radiology for evaluation of Left pneumothorax. Plan d/w Dr. Keys, RN, pt. Chest X ray minimal pneumothorax. Case discussed with radiology. No need for further management Patient can be DH (Theresa Keys MD) Karen Herrera Jan 09, 2018 08:24 Theresa Keys MD Jan 09, 2018 17:07
[2018-01-09] MEDS ORDERED: ASPIRIN 81 MG CHEW TAB CHEW SCH (09:00)
[2018-01-09] MEDS ORDERED: SERTRALINE HCL 50 MG TAB PO SCH (09:00)
[2018-01-09] MEDS ORDERED: CHOLECALCIFEROL (VIT D3) 5000 UNIT CAP PO SCH (09:00)
[2018-01-09] MEDS ORDERED: UMECLIDINIUM 62.5 MCG/VILANTEROL 25 MCG INHALER INH SCH (09:00)
[2018-01-09] MEDS ORDERED: TIOTROPIUM BROMIDE 18 MCG INH INH SCH (09:00)
--- NOTE | 2018-01-09 13:00 | RADRPT ---
EXAM DATE: 01/09/2018 12:44 PM EDT AGE/SEX: 72 years / Male INDICATIONS: Pneumothorax on left side. CLINICAL DATA: This is the patient's subsequent encounter. Patient reports that signs and symptoms h ave been present for 2 days and indicates a pain score of 0/10. MEDICAL/SURGICAL HISTORY: Congestive heart failure. Hypertension. Chronic obstructive pulmona ry disease. AFIB. Pacemaker. Stents. COMPARISON: [facility] [place], CHEST SINGLE AP, 01/08/2018. [facility] [place], CHEST SINGLE AP, 11/17/2017. . FINDINGS: Upright portable expiratory view of the chest demonstrates a normal-sized cardiac silhouette. EKG jose es overlie the patient. Left chest wall cardiac pacing device remains present. Left pneumothorax mirlande ins visualized and appears decreased in size inferiorly in the left hemithorax. The right lung is noah ar. There are no signs of tension. No pleural effusion is seen. CONCLUSION: Left pneumothorax remains present and is either stable to slightly decreased in size from yesterday's examination. There are no signs of tension. Electronically signed by: Javier Das MD 01/09/2018 12:59 PM EDT
[2018-01-09] MEDS ORDERED: CEPH-460 PO (17:14)
[2018-01-09] MEDS ORDERED: METO25TA3 PO (17:14)
[2018-01-09] MEDS ORDERED: SACU1TAB PO (17:14)
[2018-01-09] MEDS: ALBUTEROL SULFATE 90 MCG/ACT HFA 8 GM INHALER INH SCH (17:30)
--- NOTE | 2018-01-09 18:32 | EKG ---
Date Performed: 01/09/2018 Time Performed: 03:41:36 PTAGE: 72 years EKG: Paced rhythm Abnormal ECG PREVIOUS TRACING : 01/08/2018 14.41 Since the previous tracing, no significant change noted DOCTOR: Reina Arita Interpretating Date/Time 01/09/2018 18:30:39
[2018-01-09] MEDS ORDERED: SACUBITRIL/VALSARTAN 24 MG-26 MG TAB PO SCH (21:00)
[2018-01-09] MEDS ORDERED: METOPROLOL TARTRATE 25 MG TAB PO SCH (21:00)
[2018-01-10] MEDS ORDERED: CHOLECALCIFEROL 5000 UNIT PO SCH (09:00)
--- NOTE | 2018-01-10 14:51 | MP ---
cc: Theresa Keys MD DATE OF OPERATION: 01/08/2018 PROCEDURE PERFORMED: Defibrillator removal, right atrial lead extraction, new right atrial lead insertion. INDICATIONS FOR PROCEDURE: Mr. Wiggins is a 72-year-old gentleman with congestive heart failure, cardiomyopathy, previous biventricular pacer defibrillator inserted. The gentleman has an epicardial lead. RA lead is not capturing. No sensing. Decision for lead extraction and new lead insertion was taken. The risks, the nature and the benefits of the procedure were clearly stated to him. Risks include pneumothorax, cardiac perforation, stroke, need for open heart surgery and even . The patient understood and agreed to proceed. PROCEDURE: After written informed consent was obtained, the patient was brought to the EP lab where he was prepped and draped in the usual sterile fashion. Conscious sedation was initiated and maintained throughout the procedure by the anesthesiologist. Once sedation was verified, the infraclavicular area over the existing generator was anesthetized with 2% Xylocaine. Using a #11 blade scalpel, a 3 cm incision was made over the existing generator. The incision was taken down to deep fascial layer using Bovie cautery and blunt dissection. Once exposed, the generator was removed from the pocket. Scar tissue was removed around the lead. The pocket was expanded. Pocket revision was performed. Then, using modified Seldinger technique, the left subclavian vein was cannulated on one occasion and a guidewire was advanced. A 2-0 Vicryl suture was placed around the wire to prevent backbleeding. At this point, over the wire, a 7-Azeri dilator introducer was advanced. As the dilator and wire were removed, an active fixation right atrial pacing and sensing lead was advanced. After adequate pacing and sensing thresholds obtained, the lead was secured in the pocket with #2 Ethibond suture. At this point, I did proceed with lead extraction. Scar tissue was removed around the lead. The stylet was advanced. The lead was unscrewed and after multiple gentle traction, this lead was dislodged and was removed without difficulty. A 2-0 Vicryl suture was placed at the exit point to prevent back bleeding. At that point, the pocket was copiously irrigated using antibiotic solution and the leads were connected to the generator and placed into the pocket. I did proceed with wound closure. The deep fascial layer was approximated with number #2-0 Vicryl suture in a continuous fashion. The subcutaneous layer was approximated using #2-0 Vicryl suture in a continuous fashion. The subcuticular layer was approximated with #2-0 Vicryl suture in a continuous fashion. Dermabond adhesive was applied to the wound followed by sterile pressure dressing. There was no complication. The patient tolerated the procedure. Blood loss minimal. FINDINGS: 1. Explanted hardware. The explanted right atrial lead is a Biotronik, model #[id number]. 2. Implanted hardware. The implanted right atrial pacing sensing lead is a Biotronik, model #406957, serial #[id number]. 3. Threshold. The right atrial pacing threshold in bipolar mode was 0.8 volts at 0.4 milliseconds, lead impedance 480 ohms, P-wave 5.5 millivolts. The right ventricular pacing threshold in bipolar mode was 0.6 volts at 0.4 millisecond, lead impedance 465 ohms. R-wave at 21.6 millivolts. The left ventricular pacing threshold in bipolar mode was volts at 0.5 millisecond, lead impedance 275 ohms. 4. Setting. The device set in a DDD 60, upper rate limit 130 beats per minute. LV first by 40 milliseconds. Defibrillator portion for 2 zones, one zone for ventricular tachycardia between 170-240 beats per minute. Initial therapy consists of one burst of ATP 1 ramp, 81% 10 pulse, 70 second decremental, followed by 30 and a second shock at 40 joule defibrillator shock. Secondary zone for ventricular fibrillation above 240 beats per minute, first therapy at 30 and a second shock at 40 joule defibrillatory shock. CONCLUSION: Successful right atrial lead removal, new right atrial lead insertion, pocket revision. COMMENT AND RECOMMENDATION: The patient is going to be transferred to the telemetry unit. He will be observed. When stable, can be discharged home. Theresa Keys MD HS/TL , 01:37 PM , 02:50 PM
== END 2018-01-09 18:12 | disposition home or self-care (01) ==
LOC: HDOC 10:30 → HDIC 10:30 → HCPC 15:32 → HDOC 01-09 18:12
PROVIDERS: ATTEND Internal Medicine Interventional Cardiology
DX: T82.110A Breakdown (mechanical) of cardiac electrode, initial encounter (principal); I13.0 Hypertensive heart and chronic kidney disease with heart failure and stage 1 through stage 4 chronic kidney disease, or unspecified chronic kidney disease; I50.20 Unspecified systolic (congestive) heart failure; I25.5 Ischemic cardiomyopathy; I25.10 Atherosclerotic heart disease of native coronary artery without angina pectoris; N18.3 Chronic kidney disease, stage 3 (moderate); Z79.82 Long term (current) use of aspirin
CPT/HCPCS: 00530; 33216; 33244; 71045; 80048; 85025; 85610; 85730; 86850; 86900; 86901; 93005; C1898; J0690; J2270; J3010; J3370; J7050; 33234